=== PATIENT | male | born 1960 | race Caucasian/White ===

== ENCOUNTER → 2017-09-19 14:21 | Outpatient (CLI) | payer OTHER, SELFPAY ==
[2017-09-19 16:02] LABS: Albumin, Serum 3.7 g/dL (3.2-5.0); BUN 41 mg/dL (7-18); BUN/Creat Ratio 24.3 RATIO (10-20); Calcium,Total 8.7 mg/dL (8.5-10.1); Chloride 105 mmol/L (98-107); Creatinine, Serum 1.69 mg/dL (0.70-1.30); EST Glomerular Filtration Rate 45 mL/min (>60); Est Glom Filt Rate - Afr Amer 54 mL/min (>60); Glucose 170 mg/dL (74-106); Phosphorus 3.3 mg/dL (2.5-4.9); Potassium 4.3 mmol/L (3.5-5.1); Sodium Level 140 mmol/L (136-145)
[2017-09-19 16:05] LABS: Protein, Urine (Random) 46.8 mg/dL (<11.9); Protein:Creat Ratio 446 mg/g CRE (0-200)
[2017-09-20 08:32] LABS: Vitamin D,25 Hydroxy 22.6 ng/mL (29.95-100.01)
[2017-09-20 08:38] LABS: PTHIN 54.8 pg/mL (18.4-80.1)
== END ==
PROVIDERS: Family Provider Family Medicine; PCP Family Medicine; Visit Provider Internal Medicine Nephrology
DX: N18.3 Chronic kidney disease, stage 3 (moderate) (principal); R80.9 Proteinuria, unspecified
CPT/HCPCS: 36415; 80069; 82306; 82570; 83970; 84156

== ENCOUNTER → 2017-10-19 07:04 | Outpatient (CLI) | payer OTHER, SELFPAY ==
[2017-10-19 10:13] LABS: Hemoglobin A1c 6.2 % (4.2-6.3)
[2017-10-19 10:17] LABS: ALB/GLOB Ratio 1.1 RATIO (0.9-2.4); AST(SGOT) 11 U/L (15-37); Alanine Aminotransfer ALT/SGPT 30 U/L (16-61); Albumin, Serum 3.7 g/dL (3.2-5.0); Alkaline Phosphatase 78 U/L (45-117); Anion Gap 8 (5-15); BUN 39 mg/dL (7-18); BUN/Creat Ratio 20.2 RATIO (10-20); Calcium,Total 8.1 mg/dL (8.5-10.1); Chloride 108 mmol/L (98-107); Cholesterol 87 mg/dL (200); Creatinine, Serum 1.93 mg/dL (0.70-1.30); EST Glomerular Filtration Rate 39 mL/min (>60); Est Glom Filt Rate - Afr Amer 47 mL/min (>60); Globulin 3.5 g/dL (2.2-4.2); Glucose 74 mg/dL (74-106); High Density Lipoprotein 32 mg/dL; Potassium 4.4 mmol/L (3.5-5.1); Protein, Total 7.2 g/dL (6.4-8.2); Sodium Level 142 mmol/L (136-145); Thyroid Stim Hormone (TSH) 2.08 uIU/mL (0.358-3.74); Triglycerides 117 mg/dL; Very Low Density Lipoprotein 23 mg/dL (5-40)
[2017-10-19 10:19] LABS: Microalbumin:Creatinine Ratio 93.8 mg/g CRE (<30 mg/g CRE)
== END ==
PROVIDERS: Family Provider Family Medicine; PCP Family Medicine; Visit Provider Family Medicine
DX: E11.21 Type 2 diabetes mellitus with diabetic nephropathy (principal); E03.9 Hypothyroidism, unspecified; N18.3 Chronic kidney disease, stage 3 (moderate)
CPT/HCPCS: 36415; 80053; 80061; 82043; 82570; 83036; 84443

== ENCOUNTER → 2017-12-08 11:03 | Outpatient (CLI) | payer OTHER, SELFPAY ==
--- NOTE | 2017-12-08 11:03 | DT_ITS ---
This patient was seen during an EMR downtime December 04, 2017 - December 11, 2017. This patient may have a combination of paper and electronic documentation or all paper documentation. All documentation is viewable within the e-chart portion of [facility] for each patient visit.
[2017-12-08 13:47] LABS: D-Dimer Quantitative (DVT/PE) 8.19 FEU/ug/m (0.27-0.49)
== END ==
PROVIDERS: Family Provider Family Medicine; PCP Family Medicine; Visit Provider Family Medicine
DX: R06.09 Other forms of dyspnea (principal)
CPT/HCPCS: 36415; 85379

== ENCOUNTER → 2017-12-11 14:11 | Outpatient (CLI) | payer OTHER, SELFPAY ==
--- NOTE | 2017-12-11 14:11 | DT_ITS ---
This patient was seen during an EMR downtime December 04, 2017 - December 11, 2017. This patient may have a combination of paper and electronic documentation or all paper documentation. All documentation is viewable within the e-chart portion of [facility] for each patient visit.
--- NOTE | 2017-12-11 14:16 | CT_ITS ---
STUDY: CTA CHEST/THORAX REASON FOR EXAM: Male, 57 years old. Shortness of breath, elevated d-dimer. History of recent travel RADIATION DOSAGE (If Supplied By Facility): CTDIvol = ( 16.37 ) mGy, DLP = ( 742.43 ) mGycm TECHNIQUE: The examination was performed with the intravenous administration of 75mL ml of Isovue 370 contrast material. Post-processing of the angiographic images was performed, with multiplanar reformation and 3D reconstruction. Individualized dose optimization techniques were used for this CT. COMPARISON: None. FINDINGS: Normal enhancement of the main pulmonary artery and central right and left pulmonary arteries. There are filling defects in the bilateral pulmonary artery branches consistent with pulmonary embolism. Normal thoracic aorta and visualized great vessels. There is no demonstrated aortic dissection. Normal heart and pericardium. There are calcifications of the coronary arteries. Normal mediastinum. Normal hilar regions. Normal visualized trachea and bronchi. The lungs are well expanded. Normal pulmonary parenchyma. Normal pleura. Normal chest wall structures. There are degenerative changes of the thoracic spine. There is mild anterior wedging of the T12 and L1 vertebrae. Mild lobulation of the T11-L1 vertebral endplates consistent with benign Schmorl's nodes. Normal visualized upper abdomen. CT/CTA Chest W/WO Contrast IMPRESSION: Bilateral acute pulmonary emboli are demonstrated. The scan was performed on an outpatient basis. Before the patient left the Radiology department, the cytopathology technologist was able to contact Dr. Tong and inform him of the findings above. I was also able to later speak with Dr. Tong by phone myself. N.B. : The above information has been verbally conveyed by Shaheen Reilly MD to Kris Tong, Referring Physician, on 12/11/2017 16:05:49 (ET). Electronically Signed: Shaheen Reilly MD at 16:06 EDT , Service support , N.B. : The above information has been verbally conveyed by Shaheen Reilly MD to Kris Tong, Referring Physician, on 12/11/2017 16:05:49 (ET).
[2017-12-11 14:30] LABS: CREATININE FINGERSTICK 1.8 mg/dL (0.70-1.30)
== END ==
PROVIDERS: Family Provider Family Medicine; PCP Family Medicine; Visit Provider Family Medicine
DX: R79.89 Other specified abnormal findings of blood chemistry (principal)
CPT/HCPCS: 71275; Q9967

== ENCOUNTER → 2018-02-19 12:54 | Outpatient (CLI) | payer OTHER, SELFPAY | PROVIDERS: Family Provider Family Medicine; PCP Family Medicine; Visit Provider Internal Medicine Cardiovascular Disease | DX: I49.8 Other specified cardiac arrhythmias (principal); I26.99 Other pulmonary embolism without acute cor pulmonale; Z98.890 Other specified postprocedural states | CPT/HCPCS: 93306; Q9957; A4216; C8929 ==

== ENCOUNTER → 2018-03-21 09:48 | Outpatient (CLI) | payer OTHER, SELFPAY ==
[2018-03-21 12:22] LABS: Anion Gap 6 (5-15); BUN 34 mg/dL (7-18); BUN/Creat Ratio 17.7 RATIO (10-20); Calcium,Total 8.4 mg/dL (8.5-10.1); Chloride 105 mmol/L (98-107); Creatinine, Serum 1.92 mg/dL (0.70-1.30); EST Glomerular Filtration Rate 39 mL/min (>60); Est Glom Filt Rate - Afr Amer 47 mL/min (>60); Glucose 127 mg/dL (74-106); Potassium 4.2 mmol/L (3.5-5.1); Sodium Level 138 mmol/L (136-145)
[2018-03-21 12:36] LABS: Protein, Urine (Random) 36.7 mg/dL (<11.9); Protein:Creat Ratio 246 mg/g CRE (0-200)
== END ==
PROVIDERS: Family Provider Family Medicine; PCP Family Medicine; Visit Provider Internal Medicine Nephrology
DX: N18.3 Chronic kidney disease, stage 3 (moderate) (principal); R80.9 Proteinuria, unspecified
CPT/HCPCS: 36415; 80048; 82570; 84156

== ENCOUNTER → 2018-09-03 09:37 | Outpatient (CLI) | payer OTHER, SELFPAY ==
[2018-05-11 09:06] VITALS: BMI 31.1
[2018-09-03 12:27] LABS: Absolute Lymphocyte Count 2.02 X10^3/ul (0.83-4.51); Absolute Neutrophil Count 4.5 X10^3/uL (2.0-7.7); Basophil# 0.04 X10^3/uL; Basophil% 0.5 % (0-1); Eosinophil# 1.25 X10^3/uL; Hematocrit 41.6 % (40-54); Hemoglobin 13.1 g/dl (13.0-16.5); Lymphocyte # 2.02 X10^3/ul (4.0); Lymphocyte % 24.3 % (19-41); Mean Corp Hgb Conc 31.5 g/gl (32-36); Mean Corpuscular Hgb 28.9 pg (27.0-32.0); Mean Corpuscular Volume 91.8 fL (80-94); Mean Platelet Vol. 12.4 fl (6.2-12.0); Monocyte# 0.45 X10^3/uL; Monocyte% 5.4 % (0-10); Neutrophil # 4.53 X10^3/uL (2.7-7.7); Neutrophil % 54.6 % (47-70); Platelet Count 154 K/mm3 (150-450); RBC Distribution Width CV 13.4 % (11.6-14.6); RBC Distribution Width SD 43.9 fl (35.1-43.9); Red Blood Count 4.53 M/mm3 (4.6-6.2); White Blood Count 8.3 K/mm3 (4.4-11.0)
[2018-09-03 12:28] LABS: POSITIVE COUNT NO; POSITIVE DIFFERENTIAL NO; POSITIVE MORPHOLOGY NO
[2018-09-03 12:29] LABS: Microalbumin,Random Urine 78.7 mg/L (NO RANGE EST.); Microalbumin:Creatinine Ratio 28.9 mg/g CRE (<30 mg/g CRE); Protein, Urine (Random) 67.2 mg/dL (<11.9); Protein:Creat Ratio 247 mg/g CRE (0-200)
[2018-09-03 13:00] LABS: Vitamin D,25 Hydroxy 29.6 ng/mL (29.95-100.01)
[2018-09-03 13:23] LABS: ALB/GLOB Ratio 1.1 RATIO (0.9-2.4); AST(SGOT) 14 U/L (15-37); Alanine Aminotransfer ALT/SGPT 27 U/L (16-61); Albumin, Serum 3.9 g/dL (3.2-5.0); Alkaline Phosphatase 87 U/L (45-117); Anion Gap 9 (5-15); BUN 43 mg/dL (7-18); BUN/Creat Ratio 18.9 RATIO (10-20); Calcium,Total 8.2 mg/dL (8.5-10.1); Chloride 107 mmol/L (98-107); Cholesterol 82 mg/dL (200); Creatinine, Serum 2.28 mg/dL (0.70-1.30); EST Glomerular Filtration Rate 32 mL/min (>60); Est Glom Filt Rate - Afr Amer 38 mL/min (>60); Globulin 3.4 g/dL (2.2-4.2); Glucose 146 mg/dL (74-106); High Density Lipoprotein 29 mg/dL; Phosphorus 2.9 mg/dL (2.5-4.9); Potassium 4.5 mmol/L (3.5-5.1); Protein, Total 7.3 g/dL (6.4-8.2); Sodium Level 136 mmol/L (136-145); T4 Free Direct 1.23 ng/dL (0.76-1.46); Thyroid Stim Hormone (TSH) 1.39 uIU/mL (0.358-3.74); Triglycerides 83 mg/dL; Very Low Density Lipoprotein 17 mg/dL (5-40)
== END ==
PROVIDERS: Family Provider Family Medicine; PCP Family Medicine; Referring Provider Internal Medicine Nephrology; Visit Provider Internal Medicine Nephrology
DX: I12.9 Hypertensive chronic kidney disease with stage 1 through stage 4 chronic kidney disease, or unspecified chronic kidney disease (principal); E11.22 Type 2 diabetes mellitus with diabetic chronic kidney disease; N18.3 Chronic kidney disease, stage 3 (moderate); E11.21 Type 2 diabetes mellitus with diabetic nephropathy; E03.9 Hypothyroidism, unspecified; E55.9 Vitamin D deficiency, unspecified
CPT/HCPCS: 36415; 80053; 80061; 82043; 82306; 82570; 83970; 84100; 84156; 84439; 84443; 85025

== ENCOUNTER → 2018-12-24 11:02 | Outpatient (CLI) | payer OTHER, SELFPAY ==
[2018-11-08 15:13] VITALS: BMI 30.6
--- NOTE | 2018-12-24 11:05 | RAD_ITS ---
STUDY: X-RAY - ABDOMEN/PELVIS REASON FOR EXAM: Male, 58 years old. Abdominal pain. TECHNIQUE: Two AP supine views of the abdomen and pelvis. COMPARISON: None. FINDINGS: Normal visualized lung bases. There is an unremarkable bowel gas pattern. There is no demonstrated free abdominal air. The visualized liver, spleen and kidneys are grossly normal in size and morphology. Normal soft tissue structures. There are early degenerative changes of the visualized lumbar spine. There is mild left-sided depression of the superior T12 vertebral endplate, age uncertain. RAD/Abdomen Single View IMPRESSION: 1. Nonspecific bowel gas pattern. No free gas. 2. Left lateral wedging of the superior T12 vertebral endplate, age uncertain. Electronically Signed: Shaheen Reilly MD at 16:00 EDT , Service support ,
== END ==
PROVIDERS: Family Provider Family Medicine; PCP Family Medicine; Referring Provider Family Medicine; Visit Provider Family Medicine
DX: R10.9 Unspecified abdominal pain (principal)
CPT/HCPCS: 74018

== ENCOUNTER → 2019-02-19 07:25 | Outpatient (CLI) | payer OTHER, SELFPAY ==
[2018-11-08 15:13] VITALS: BMI 30.6
[2019-02-19 10:21] LABS: Hematocrit 35.5 % (40-54); Hemoglobin 11.5 g/dL (13.0-16.5); Mean Corp Hgb Conc 32.4 g/dL (32-36); Mean Corpuscular Hgb 30.2 pg (27.0-32.0); Mean Corpuscular Volume 93.2 fL (80-94); Mean Platelet Vol. 11.7 fl (6.2-12.0); Platelet Count 147 K/mm3 (150-450); RBC Distribution Width CV 13.2 % (11.6-14.6); RBC Distribution Width SD 45.1 fl (35.1-43.9); Red Blood Count 3.81 M/mm3 (4.6-6.2); White Blood Count 5.3 K/mm3 (4.4-11.0)
[2019-02-19 10:48] LABS: Albumin, Serum 3.5 g/dL (3.2-5.0); BUN 26 mg/dL (7-18); BUN/Creat Ratio 16.2 RATIO (10-20); Calcium,Total 8.4 mg/dL (8.5-10.1); Chloride 109 mmol/L (98-107); EST Glomerular Filtration Rate 48 mL/min (>60); Est Glom Filt Rate - Afr Amer 58 mL/min (>60); Glucose 138 mg/dL (74-106); Phosphorus 3.3 mg/dL (2.5-4.9); Potassium 4.3 mmol/L (3.5-5.1); Sodium Level 142 mmol/L (136-145)
[2019-02-19 10:51] LABS: Protein, Urine (Random) 32.1 mg/dL (<11.9); Protein:Creat Ratio 390 mg/g CRE (0-200)
[2019-02-19 10:54] LABS: Vitamin D,25 Hydroxy 30.4 ng/mL (29.95-100.01)
== END ==
PROVIDERS: Family Provider Family Medicine; PCP Family Medicine; Referring Provider Internal Medicine Nephrology; Visit Provider Internal Medicine Nephrology
DX: N18.3 Chronic kidney disease, stage 3 (moderate) (principal); N25.81 Secondary hyperparathyroidism of renal origin; R80.9 Proteinuria, unspecified
CPT/HCPCS: 36415; 80069; 82306; 82570; 83970; 84156; 85027

== ENCOUNTER → 2019-04-17 07:36 | Outpatient (CLI) | payer OTHER, SELFPAY ==
[2018-05-11 09:06] VITALS: BMI 31.1
[2018-11-08 15:13] VITALS: BMI 30.6
[2019-04-17 10:25] LABS: Hemoglobin A1c 6.6 % (4.2-6.3)
[2019-04-17 10:37] LABS: Cholesterol 91 mg/dL (200); High Density Lipoprotein 33 mg/dL; T4 Free Direct 1.12 ng/dL (0.76-1.46); Thyroid Stim Hormone (TSH) 1.74 uIU/mL (0.358-3.74); Triglycerides 133 mg/dL; Very Low Density Lipoprotein 27 mg/dL (5-40)
== END ==
PROVIDERS: Family Provider Family Medicine; PCP Family Medicine; Referring Provider Family Medicine; Visit Provider Family Medicine
DX: E78.6 Lipoprotein deficiency (principal); E11.21 Type 2 diabetes mellitus with diabetic nephropathy; E03.9 Hypothyroidism, unspecified
CPT/HCPCS: 36415; 80061; 83036; 84439; 84443

== ENCOUNTER → 2019-08-01 07:37 | Outpatient (CLI) | payer BC, SELFPAY ==
[2018-11-08 15:13] VITALS: BMI 30.6
[2019-08-01 10:16] LABS: Hematocrit 40.6 % (40-54); Hemoglobin 12.9 g/dL (13.0-16.5); Mean Corp Hgb Conc 31.8 g/dL (32-36); Mean Corpuscular Hgb 29.2 pg (27.0-32.0); Mean Corpuscular Volume 91.9 fL (80-94); Mean Platelet Vol. 11.7 fl (6.2-12.0); Platelet Count 187 K/mm3 (150-450); RBC Distribution Width CV 13.2 % (11.6-14.6); RBC Distribution Width SD 43.4 fl (35.1-43.9); Red Blood Count 4.42 M/mm3 (4.6-6.2); White Blood Count 6.7 K/mm3 (4.4-11.0)
[2019-08-01 10:34] LABS: Albumin, Serum 3.8 g/dL (3.2-5.0); BUN 34 mg/dL (7-18); BUN/Creat Ratio 19.9 RATIO (10-20); Calcium,Total 9.2 mg/dL (8.5-10.1); Chloride 104 mmol/L (98-107); Creatinine, Serum 1.71 mg/dL (0.70-1.30); EST Glomerular Filtration Rate 44 mL/min (>60); Est Glom Filt Rate - Afr Amer 53 mL/min (>60); Glucose 107 mg/dL (74-106); Phosphorus 3.6 mg/dL (2.5-4.9); Potassium 4.2 mmol/L (3.5-5.1); Sodium Level 138 mmol/L (136-145)
[2019-08-01 10:49] LABS: Protein, Urine (Random) 43.5 mg/dL (<11.9); Protein:Creat Ratio 372 mg/g CRE (0-200)
[2019-08-01 11:25] LABS: Vitamin D,25 Hydroxy 32.8 ng/mL (29.95-100.01)
[2019-08-01 11:26] LABS: PTHIN 67.4 pg/mL (18.4-80.1)
== END ==
PROVIDERS: PCP Family Medicine; Referring Provider Internal Medicine Nephrology; Visit Provider Internal Medicine Nephrology
DX: N18.3 Chronic kidney disease, stage 3 (moderate) (principal); N25.81 Secondary hyperparathyroidism of renal origin; R80.9 Proteinuria, unspecified
CPT/HCPCS: 36415; 80069; 82306; 82570; 83970; 84156; 85027

== ENCOUNTER → 2019-12-19 07:35 | Outpatient (CLI) | payer BC, SELFPAY ==
[2018-11-08 15:13] VITALS: BMI 30.6
[2019-12-19 10:39] LABS: Hemoglobin A1c 8.9 % (3.8-5.6)
[2019-12-19 11:00] LABS: T4 Free Direct 1.12 ng/dL (0.76-1.46); Thyroid Stim Hormone (TSH) 2.45 uIU/mL (0.358-3.74)
== END ==
LOC: LAB.FUTURE 07:38 → MTLAB 07:41
PROVIDERS: PCP Family Medicine; Referring Provider Family Medicine; Visit Provider Family Medicine
DX: E11.21 Type 2 diabetes mellitus with diabetic nephropathy (principal); E03.9 Hypothyroidism, unspecified
CPT/HCPCS: 36415; 83036; 84439; 84443

== ENCOUNTER → 2020-01-30 09:08 | Outpatient (CLI) | payer BC, SELFPAY ==
[2018-11-08 15:13] VITALS: BMI 30.6
[2020-01-30 10:18] LABS: Hematocrit 40.3 % (40-54); Hemoglobin 12.8 g/dL (13.0-16.5); Mean Corp Hgb Conc 31.8 g/dL (32-36); Mean Corpuscular Hgb 29.2 pg (27.0-32.0); Mean Platelet Vol. 11.3 fl (6.2-12.0); Platelet Count 170 K/mm3 (150-450); RBC Distribution Width CV 12.9 % (11.6-14.6); RBC Distribution Width SD 43.4 fl (35.1-43.9); Red Blood Count 4.38 M/mm3 (4.6-6.2); White Blood Count 6.4 K/mm3 (4.4-11.0)
[2020-01-30 10:32] LABS: Vitamin D,25 Hydroxy 42.1 ng/mL
[2020-01-30 10:42] LABS: PTHIN 63.9 pg/mL (18.4-80.1)
[2020-01-30 10:44] LABS: Albumin, Serum 3.6 g/dL (3.2-5.0); BUN 34 mg/dL (7-18); BUN/Creat Ratio 20.2 RATIO (10-20); Calcium,Total 8.5 mg/dL (8.5-10.1); Chloride 107 mmol/L (98-107); Creatinine, Serum 1.68 mg/dL (0.70-1.30); EST Glomerular Filtration Rate 45 mL/min (>60); Est Glom Filt Rate - Afr Amer 54 mL/min (>60); Glucose 180 mg/dL (74-106); Phosphorus 3.1 mg/dL (2.5-4.9); Potassium 4.4 mmol/L (3.5-5.1); Sodium Level 137 mmol/L (136-145)
[2020-01-30 10:49] LABS: Protein, Urine (Random) 67.2 mg/dL (<11.9); Protein:Creat Ratio 525 mg/g CRE (0-200)
== END ==
PROVIDERS: PCP Family Medicine; Referring Provider Internal Medicine Nephrology; Visit Provider Internal Medicine Nephrology
DX: N18.3 Chronic kidney disease, stage 3 (moderate) (principal); N25.81 Secondary hyperparathyroidism of renal origin
CPT/HCPCS: 36415; 80069; 82306; 82570; 83970; 84156; 85027

== ENCOUNTER → 2020-10-26 13:43 | Outpatient (CLI) | payer BC, SELFPAY ==
[2018-11-08 15:13] VITALS: BMI 30.6
[2020-10-26 15:33] LABS: Protein, Urine (Random) 41.5 mg/dL (<11.9); Protein:Creat Ratio 358 mg/g CRE (0-200)
[2020-10-26 15:38] LABS: Anion Gap 8 (5-15); BUN 47 mg/dL (7-18); BUN/Creat Ratio 25.5 RATIO (10-20); Calcium,Total 8.7 mg/dL (8.5-10.1); Chloride 105 mmol/L (98-107); Creatinine, Serum 1.84 mg/dL (0.70-1.30); EST Glomerular Filtration Rate 40 mL/min (>60); Est Glom Filt Rate - Afr Amer 49 mL/min (>60); Glucose 118 mg/dL (74-106); Potassium 4.3 mmol/L (3.5-5.1); Sodium Level 137 mmol/L (136-145)
== END ==
PROVIDERS: PCP Family Medicine; Referring Provider Internal Medicine Nephrology; Visit Provider Internal Medicine Nephrology
DX: R50.9 Fever, unspecified (principal); N18.30 Chronic kidney disease, stage 3 unspecified
CPT/HCPCS: 36415; 80048; 82570; 84156

== ENCOUNTER → 2020-12-29 07:17 | Outpatient (CLI) | payer BC, SELFPAY ==
[2020-12-29 10:32] LABS: AST(SGOT) 12 U/L (15-37); Alanine Aminotransfer ALT/SGPT 38 U/L (16-61); Albumin, Serum 3.7 g/dL (3.2-5.0); Alkaline Phosphatase 106 U/L (45-117); Bilirubin, Direct 0.12 mg/dL (0.00-0.30); Cholesterol 92 mg/dL (200); Globulin 3.3 g/dL (2.2-4.2); High Density Lipoprotein 32 mg/dL; Triglycerides 139 mg/dL; Very Low Density Lipoprotein 28 mg/dL (5-40)
== END ==
PROVIDERS: PCP Family Medicine; Referring Provider Internal Medicine Cardiovascular Disease; Visit Provider Internal Medicine Cardiovascular Disease
DX: E78.00 Pure hypercholesterolemia, unspecified (principal)
CPT/HCPCS: 36415; 80061; 80076

== ENCOUNTER → 2021-04-07 07:16 | Outpatient (CLI) | payer BC, SELFPAY ==
[2021-04-07 10:34] LABS: Cholesterol 91 mg/dL (200); Hemoglobin A1c 6.9 % (3.8-5.6); High Density Lipoprotein 32 mg/dL; Thyroid Stim Hormone (TSH) 1.65 uIU/mL (0.358-3.74); Triglycerides 132 mg/dL; Very Low Density Lipoprotein 26 mg/dL (5-40)
== END ==
PROVIDERS: PCP Family Medicine; Referring Provider Family Medicine; Visit Provider Family Medicine
DX: E03.9 Hypothyroidism, unspecified (principal); E11.21 Type 2 diabetes mellitus with diabetic nephropathy
CPT/HCPCS: 36415; 80061; 83036; 84443

== ENCOUNTER → 2021-10-27 | Outpatient (CLI) | payer BC, SELFPAY ==
[2021-10-27 10:00] LABS: Hemoglobin 13.1 g/dL (13.0-16.5); Mean Corp Hgb Conc 32.8 g/dL (32-36); Mean Corpuscular Hgb 29.1 pg (27.0-32.0); Mean Corpuscular Volume 88.9 fL (80-94); Mean Platelet Vol. 11.1 fl (6.2-12.0); Platelet Count 153 K/mm3 (150-450); RBC Distribution Width CV 12.3 % (11.6-14.6); RBC Distribution Width SD 39.8 fl (35.1-43.9); White Blood Count 5.9 K/mm3 (4.4-11.0)
[2021-10-27 10:32] LABS: PTHIN 43.9 pg/mL (18.4-80.1)
[2021-10-27 10:35] LABS: Vitamin D,25 Hydroxy 59.1 ng/mL
[2021-10-27 10:40] LABS: Albumin, Serum 3.6 g/dL (3.2-5.0); BUN 35 mg/dL (7-18); BUN/Creat Ratio 19.2 RATIO (10-20); Calcium,Total 8.7 mg/dL (8.5-10.1); Chloride 103 mmol/L (98-107); Creatinine, Serum 1.82 mg/dL (0.70-1.30); EST Glomerular Filtration Rate 41 mL/min (>60); Est Glom Filt Rate - Afr Amer 49 mL/min (>60); Glucose 160 mg/dL (74-106); Phosphorus 3.3 mg/dL (2.5-4.9); Potassium 4.2 mmol/L (3.5-5.1); Sodium Level 136 mmol/L (136-145)
[2021-10-27 12:23] LABS: Protein, Urine (Random) 21.5 mg/dL (<11.9); Protein:Creat Ratio 351 mg/g CRE (0-200)
== END | disposition home or self-care (01) ==
LOC: MTLAB 09:18
PROVIDERS: PCP Family Medicine; Referring Provider Internal Medicine Nephrology; Visit Provider Internal Medicine Nephrology
DX: R80.9 Proteinuria, unspecified (principal); N25.81 Secondary hyperparathyroidism of renal origin; N18.32 Chronic kidney disease, stage 3b
CPT/HCPCS: 36415; 80069; 82306; 82570; 83970; 84156; 85027

== ENCOUNTER → 2022-04-12 | Outpatient (CLI) | payer BC, SELFPAY ==
[2022-04-12 10:17] LABS: Absolute Lymphocyte Count 2.37 X10^3/uL (0.83-4.51); Absolute Neutrophil Count 4.5 X10^3/uL (2.0-7.7); Basophil# 0.08 X10^3/uL; Eosinophils% 5.1 % (0-5); Hematocrit 43.1 % (40-54); Hemoglobin 13.8 g/dL (13.0-16.5); Lymphocyte # 2.37 X10^3/ul (0.83-4.51); Lymphocyte % 29.9 % (19-41); Mean Corpuscular Hgb 29.3 pg (27.0-32.0); Mean Corpuscular Volume 91.5 fL (80-94); Mean Platelet Vol. 11.6 fl (6.2-12.0); Monocyte# 0.53 X10^3/uL; Monocyte% 6.7 % (0-10); NRBC Flagged by Analyzer 0 % (0-5); Neutrophil # 4.52 X10^3/uL (2.7-7.7); Platelet Count 189 K/mm3 (150-450); RBC Distribution Width SD 43.5 fl (35.1-43.9); Red Blood Count 4.71 M/mm3 (4.6-6.2); White Blood Count 7.9 K/mm3 (4.4-11.0)
[2022-04-12 10:46] LABS: ALB/GLOB Ratio 0.9 RATIO (0.9-2.4); AST(SGOT) 11 U/L (15-37); Alanine Aminotransfer ALT/SGPT 26 U/L (16-61); Albumin, Serum 3.5 g/dL (3.2-5.0); Alkaline Phosphatase 104 U/L (45-117); Anion Gap 7 (5-15); BUN 42 mg/dL (7-18); BUN/Creat Ratio 21.4 RATIO (10-20); Calcium,Total 8.9 mg/dL (8.5-10.1); Chloride 106 mmol/L (98-107); Cholesterol 95 mg/dL (200); Creatinine, Serum 1.96 mg/dL (0.70-1.30); EST Glomerular Filtration Rate 37 mL/min (>60); Est Glom Filt Rate - Afr Amer 45 mL/min (>60); Globulin 3.7 g/dL (2.2-4.2); Glucose 112 mg/dL (74-106); High Density Lipoprotein 30 mg/dL; PSA,Total - Annual Screen 0.84 ng/mL (0.00-4.00); Potassium 4.1 mmol/L (3.5-5.1); Protein, Total 7.2 g/dL (6.4-8.2); Sodium Level 140 mmol/L (136-145); Thyroid Stim Hormone (TSH) 1.77 uIU/mL (0.358-3.74); Triglycerides 143 mg/dL; Very Low Density Lipoprotein 29 mg/dL (5-40)
== END | disposition home or self-care (01) ==
LOC: MTLAB 07:18
PROVIDERS: PCP Family Medicine; Referring Provider Family Medicine; Visit Provider Family Medicine
DX: Z00.00 Encounter for general adult medical examination without abnormal findings (principal); E11.21 Type 2 diabetes mellitus with diabetic nephropathy; E03.9 Hypothyroidism, unspecified; Z12.5 Encounter for screening for malignant neoplasm of prostate
CPT/HCPCS: 36415; 80053; 80061; 82043; 82570; 84153; 84443; 85025; G0103

== ENCOUNTER → 2022-10-10 | Outpatient (CLI) | payer BC, SELFPAY ==
--- NOTE | 2022-10-10 15:51 | NEURO ---
NCS and/or EMG Patient Report Ordering Doctor: Kris Tong DATE OF SERVICE: 10/10/22 Indication: Intermittent numbness of the right hand. Occasional soreness on the dorsum of the wrist. No fixed weakness or numbness. No localized or radicular neck pain. Evaluate for entrapment neuropathy. Findings: Nerve conduction studies were performed in the right upper extremity. The right median motor study recording the abductor pollicis brevis showed a normal amplitude, normal distal latency and normal conduction velocity. The right ulnar motor study recording the abductor digiti minimi showed a normal amplitude, normal distal latency and normal conduction velocity. No conduction block or focal slowing was present across the elbow. The right median sensory response recording digit two showed a normal amplitude, latency and conduction velocity. The right ulnar sensory response recording digit five showed a normal amplitude, latency and conduction velocity. The right radial sensory response recording over the extensor snuff box showed a normal amplitude, latency and conduction velocity. Right median-ulnar lumbrical / interosseous motor latencies showed a prolonged median latency compared to the ulnar. Needle EMG of the right upper extremity muscles was performed. No denervation was seen in any muscle. Motor units in the abductor pollicis brevis were slightly large amplitude and long duration with normal recruitment. All other motor unit morphology, activation and recruitment patterns were normal. Impression: This is a borderline study. 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 This is supported by the abnormal internal comparison study as well as neurogenic motor units within the thenar muscles. Elieser Saab D.O. Multi [employer] Codes Neurology Neurology Interp Codes: 07027-94 Musc test done w/n test comp (interp) and 31859-73 Nrv cndj test 7-8 studies (interp)
== END | disposition home or self-care (01) ==
LOC: PSN 15:03
PROVIDERS: PCP Family Medicine; Referring Provider Family Medicine; Visit Provider Family Medicine
DX: R20.2 Paresthesia of skin (principal)
CPT/HCPCS: 95886; 95910

== ENCOUNTER → 2022-10-20 | Outpatient (CLI) | payer BC, SELFPAY ==
[2022-10-20 10:03] LABS: Hemoglobin 15.1 g/dL (13.0-16.5); Mean Corp Hgb Conc 31.5 g/dL (32-36); Mean Corpuscular Hgb 28.7 pg (27.0-32.0); Mean Corpuscular Volume 91.1 fL (80-94); Mean Platelet Vol. 11.3 fl (6.2-12.0); Platelet Count 159 K/mm3 (150-450); RBC Distribution Width CV 13.4 % (11.6-14.6); RBC Distribution Width SD 45.3 fl (35.1-43.9); Red Blood Count 5.27 M/mm3 (4.6-6.2); White Blood Count 6.4 K/mm3 (4.4-11.0)
[2022-10-20 10:08] LABS: Protein, Urine (Random) 29.7 mg/dL (<11.9); Protein:Creat Ratio 318 mg/g CRE (0-200)
[2022-10-20 10:16] LABS: Vitamin D,25 Hydroxy 61.1 ng/mL
[2022-10-20 10:23] LABS: Albumin, Serum 3.7 g/dL (3.2-5.0); BUN 39 mg/dL (7-18); BUN/Creat Ratio 20.5 RATIO (10-20); Chloride 106 mmol/L (98-107); EST Glomerular Filtration Rate 39 mL/min (>60); Est Glom Filt Rate - Afr Amer 47 mL/min (>60); Glucose 127 mg/dL (74-106); Phosphorus 4.2 mg/dL (2.5-4.9); Potassium 3.9 mmol/L (3.5-5.1); Sodium Level 137 mmol/L (136-145)
[2022-10-20 10:27] LABS: PTHIN 80.8 pg/mL (18.4-80.1)
== END | disposition home or self-care (01) ==
LOC: MTLAB 07:22
PROVIDERS: PCP Family Medicine; Referring Provider Internal Medicine Nephrology; Visit Provider Internal Medicine Nephrology
DX: N18.32 Chronic kidney disease, stage 3b (principal); N25.81 Secondary hyperparathyroidism of renal origin
CPT/HCPCS: 36415; 80069; 82306; 82570; 83970; 84156; 85027

== ENCOUNTER → 2023-12-01 | Outpatient (CLI) | payer BC, SELFPAY ==
[2023-12-01 10:20] LABS: Hematocrit 44.8 % (40-54); Hemoglobin 14.6 g/dL (13.0-16.5); Mean Corp Hgb Conc 32.6 g/dL (32-36); Mean Corpuscular Hgb 29.6 pg (27.0-32.0); Mean Corpuscular Volume 90.7 fL (80-94); Mean Platelet Vol. 11.6 fl (6.2-12.0); Platelet Count 157 K/mm3 (150-450); RBC Distribution Width CV 13.2 % (11.6-14.6); RBC Distribution Width SD 43.3 fl (35.1-43.9); Red Blood Count 4.94 M/mm3 (4.6-6.2); White Blood Count 6.3 K/mm3 (4.4-11.0)
[2023-12-01 10:41] LABS: ALB/GLOB Ratio 1.1 RATIO (0.9-2.4); AST(SGOT) 15 U/L (15-37); Alanine Aminotransfer ALT/SGPT 39 U/L (16-61); Albumin, Serum 3.6 g/dL (3.2-5.0); Alkaline Phosphatase 102 U/L (45-117); BUN 32 mg/dL (7-18); BUN/Creat Ratio 18.2 RATIO (10-20); Bilirubin, Direct 0.17 mg/dL (0.00-0.30); Chloride 104 mmol/L (98-107); Cholesterol 96 mg/dL (200); Creatinine, Serum 1.76 mg/dL (0.70-1.30); EST Glomerular Filtration Rate 42 mL/min (>60); Est Glom Filt Rate - Afr Amer 51 mL/min (>60); Globulin 3.3 g/dL (2.2-4.2); Glucose 156 mg/dL (74-106); High Density Lipoprotein 33 mg/dL; Phosphorus 4.3 mg/dL (2.5-4.9); Potassium 3.8 mmol/L (3.5-5.1); Protein, Total 6.9 g/dL (6.4-8.2); Sodium Level 137 mmol/L (136-145); Thyroid Stim Hormone (TSH) 2.21 uIU/mL (0.358-3.74); Triglycerides 161 mg/dL; Very Low Density Lipoprotein 32 mg/dL (5-40)
[2023-12-01 11:52] LABS: Vitamin D,25 Hydroxy 48.2 ng/mL
[2023-12-01 11:54] LABS: PTHIN 61.5 pg/mL (18.4-80.1)
[2023-12-01 12:04] LABS: Microalbumin,Random Urine 64.6 mg/L (NO RANGE EST.); Microalbumin:Creatinine Ratio 96.1 mg/g CRE (<30 mg/g CRE); Protein, Urine (Random) 19.6 mg/dL (<11.9); Protein:Creat Ratio 292 mg/g CRE (0-200)
== END | disposition home or self-care (01) ==
LOC: MTLAB 07:17
PROVIDERS: PCP Family Medicine; Referring Provider Family Medicine; Visit Provider Family Medicine
DX: Z12.5 Encounter for screening for malignant neoplasm of prostate (principal); E11.21 Type 2 diabetes mellitus with diabetic nephropathy; E11.22 Type 2 diabetes mellitus with diabetic chronic kidney disease; N18.32 Chronic kidney disease, stage 3b; N25.81 Secondary hyperparathyroidism of renal origin; R80.9 Proteinuria, unspecified; I12.9 Hypertensive chronic kidney disease with stage 1 through stage 4 chronic kidney disease, or unspecified chronic kidney disease; E03.9 Hypothyroidism, unspecified
CPT/HCPCS: 36415; 80061; 80069; 82043; 82247; 82248; 82306; 82570; 83970; 84075; 84153; 84156; 84443; 84450; 84460; 85027; G0103

== ENCOUNTER → 2024-12-25 | Outpatient (CLI) | payer OTHER, SELFPAY ==
--- OUTSIDE RECORDS SUMMARY | 2024-12-25 07:25 | XMS RPT_ITS | CCD ---
Author Organization [facility] Care Team Providers Care It Operations Manager Name Role Phone Dr. Kris Tong Primary Care Provider Dr. Anand Andrea Attending Provider Dr. Anand Andrea Referring Provider Dr. Kris Tong Referring Provider Priscila Aragon Attending Provider Unavailable Dr. Kris Tong Primary Care Provider Dr. Kris Tong Referring Provider [phone] Anand Andrea Attending Provider [phone] Kris Tong Primary Care Provider Dr. Anand Andrea Attending Provider Dr. Anand Andrea Referring Provider Dr. Kris Tong Referring Provider Dr. Kris Tong Other Provider Dr. Carrillo Saab Attending Provider Kris Tong Primary Care Unavailable Kris Tong Attending Unavailable Kris Tong Referring Unavailable Anand Andrea Attending Unavailable Kris Tong Primary Care Unavailable Zully, Pocahontas Referring Unavailable Zully, Anand Attending Unavailable Kris Tong Primary Care Unavailable Zully, Anand Referring Unavailable Zully, Anand Attending Unavailable Zully, Pocah[place] Referring Unavailable Kris Tong Primary Care Unavailable Kris Tong Primary Care Unavailable Roof SCARFER, Nithin Dillard Attending Unavailable Kris Tong Referring Unavailable Kris Tong Primary Care Unavailable Zully, Anand Attending Unavailable Anand Andrea Referring Unavailable Anand Andrea Attending Unavailable Kris Tong Primary Care Unavailable Anand Andrea Attending Unavailable Kris Tong Primary Care Unavailable Anand Andrea Referring Unavailable Kris Tong Referring Unavailable Libra Draper Consulting Unavailable Kris Tong Primary Care Unavailable Kris Tong Attending Unavailable Medications Current Medications Medication Drug Class(es) Dates Sig (Normalized) Sig (Original) aspirin 81 mg delayed release oral tablet (4 sources) Platelet Aggregation Inhibitor, Nonsteroidal Anti-inflammatory Drug Start: 12-08-2020 take 1 tablet by mouth once daily Aspirin (Adult Aspirin Regimen) 81 mg tablet,delayed release (DR/EC) Active 81 MG PO DAILY December 08, 2020 12:00am atorvastatin 20 mg oral tablet (8 sources) HMG-CoA Reductase Inhibitor Start: 11-12-2019 take 20 mg by mouth at bedtime Atorvastatin Active 20 MG PO AT BEDTIME November 12, 2019 12:00am Start: 06-28-2017 End: 11-12-2019 Atorvastatin Discontinued PO June 28, 2017 1:00am November 12, 2019 9:05am cholecalciferol 0.125 mg oral tablet (4 sources) Vitamin D Start: 05-05-2022 take 125 ug by mouth once daily Cholecalciferol (Vitamin D3) Active 125 MCG PO DAILY May 05, 2022 12:00am Start: 12-15-2017 take 1 capsule by mo [facility] once daily cholecalciferol (vitamin D3) 4,000 unit capsule Active 4000 UNIT PO daily December 15, 2017 3:07pm dapagliflozin 10 mg oral tablet (2 sources) Sodium-Glucose Cotransporter 2 Inhibitor Start: 05-05-2022 take 1 tablet by mouth once daily Dapagliflozin (Farxiga) 10 mg tablet Active 10 MG PO DAILY May 05, 2022 12:00am glipiZIDE 10 mg oral tablet (12 sources) Sulfonylurea Start: 12-08-2020 take 10 mg by mouth once daily Glipizide Active 10 MG PO DAILY December 08, 2020 12:00am Start: 12-15-2017 End: 12-08-2020 take 2.5 mg by mouth once daily Glipizide Discontinued 2.5 MG PO daily December 15, 2017 12:00am December 08, 2020 9:28am Start: 06-28-2017 End: 12-15-2017 take 5 mg by mouth once daily Glipizide Discontinued 5 MG PO daily June 28, 2017 1:00am December 15, 2017 3:06pm levothyroxine sodium 0.075 mg oral tablet (7 sources) l-Thyroxine Start: 12-08-2021 take 75 ug by mouth once daily Levothyroxine Active 75 MCG PO DAILY December 08, 2021 12:00am Start: 06-28-2017 End: 12-08-2021 take 1 capsule by mouth once daily levothyroxine 75 mcg capsule Discontinued 75 MCG PO daily June 28, 2017 1:00am December 08, 2021 8:58am lisinopril 20 mg oral tablet (8 sources) Angiotensin Converting Enzyme Inhibitor Start: 12-15-2017 take 20 mg by mouth once daily Lisinopril Active 20 MG PO daily December 15, 2017 12:00am Start: 06-28-2017 End: 12-15-2017 take 40 mg by mouth once daily Lisinopril Discontinued 40 MG PO daily June 28, 2017 1:00am December 15, 2017 3:06pm SITagliptin 100 mg oral tablet (7 sources) Dipeptidyl Peptidase 4 Inhibitor Start: 06-28-2017 End: 12-08-2021 take 100 mg by mouth once daily Sitagliptin Phosphate Active 100 MG PO DAILY December 08, 2021 8:59am Completed/Discontinued Medications Medication Drug Class(es) Dates Sig (Normalized) Sig (Original) cholecalciferol (vitamin D3) 4,000 unit capsule (2 sources) Start: 12-15-2017 End: 05-05-2022 take 1 capsule by mouth once daily cholecalciferol (vitamin D3) 4,000 unit capsule Discontinued 4000 UNIT PO daily December 15, 2017 12:00am May 05, 2022 11:09am 24 hr metoprolol succinate 25 mg extended release oral tablet (8 sources) beta-Adrenergic Cale Start: 11-12-2019 End: 05-05-2022 take 25 mg by mouth once daily Metoprolol Succinate Discontinued 25 MG PO DAILY November 12, 2019 12:00am May 05, 2022 11:08am Start: 12-15-2017 End: 11-12-2019 take 25 mg by mouth twice daily Metoprolol Tartrate Discontinued 25 MG PO TWICE A DAY December 15, 2017 12:00am November 12, 2019 9:06am rivaroxaban 20 mg oral tablet (12 sources) Factor Xa Inhibitor Start: 05-11-2018 End: 11-08-2018 take 1 tablet by mouth once daily Rivaroxaban (Xarelto) 20 mg tablet Discontinued 20 MG PO DAILY May 11, 2018 1:00am November 08, 2018 3:16pm Start: 12-15-2017 End: 05-11-2018 take 1 tablet by mouth twice daily Rivaroxaban (Xarelto) 15 mg tablet Discontinued 15 MG PO .COMPLEX December 15, 2017 12:00am May 11, 2018 10:09am 15 mg PO BID for PE per Dr. Tong Start: 07-24-2017 End: 12-14-2017 take 1 tablet by mouth once daily at mealtime Rivaroxaban (Xarelto) 15 mg tablet Discontinued 15 MG PO daily July 24, 2017 1:00am December 14, 2017 5:49pm administer with meals Problems Active Problems Problem Classification Problem Date Documented Date Episodic/Chronic Cardiac dysrhythmias (16 sources) Paroxysmal supraventricular tachycardia; Translations: [Supraventricular tachycardia] Onset: 03-11-2024 Chronic Conduction disorders (16 sources) Right bundle branch block AND left posterior fascicular block; Translations: [Bifascicular block] Onset: 04-22-2022 Chronic Diabetes mellitus with complications (1 source) Type 2 diabetes mellitus with diabetic nephropathy; Translations: [Type 2 diabetes mellitus with diabetic nephropathy] Onset: 11-05-2024 Chronic Essential hypertension (4 sources) Essential hypertension; Translations: [Essential (primary) hypertension] 11-01-2018 Chronic Other screening for suspected conditions (not mental disorders or infectious disease) (2 sources) Encounter for screening for malignant neoplasm of prostate; Translations: [Encounter for screening for malignant neoplasm of prostate] Onset: 12-09-2023 Episodic Past or Other Problems Problem Classification Problem Date Documented Date Episodic/Chronic Pulmonary heart disease (8 sources) Pulmonary embolism; Translations: [Other pulmonary embolism without acute cor pulmonale] Onset: 12-01-2017 12-05-2020 Episodic Residual codes; unclassified (3 sources) Other specified postprocedural states; Translations: [Personal history of surgery to other organs] Onset: 04-06-2018 Episodic Results Test Name Value Interpretation Reference Range Facility Cardiology Visit Reporton Cardiology Visit Report [facility] [address] [place] [address] OFFICE VISIT Date of Service: 02/20/24 MR#: [id number] Acct: [id number] Name: RUSLAN MORIN Rep #: [id number] : 1960 Provider: BHAVANA aparicio Age/Sex: 63/M Location: [facility] Status: Signed HPI HPI History of Present Illness Details: RUSLAN MORIN, is a 63 y/o pleasant gentleman with a history of hypertension chronic renal insufficiency diabetes mellitus who had on occasion noted palpitations. On a routine EKG performed in the office while he was there he was noted to be in a tachycardia with a rate of approximately 131 bpm with a right bundle branch block. It was determined that this was a supraventricular tachyarrhythmia and he was sent to [facility]. He had an EP study which demonstrated a wide complex tachycardia with an atypical right bundle branch block pattern. He had complete detailed mapping of the right atrium left atrium coronary sinus assessment for antidromic tachycardia. There was successful ablation of what appeared to be an idiopathic DVT in the left anterior lateral segment. Post ablation there was no evidence of inducible VT despite pacing in the RV LV and RA. He was discharged home and then he subsequently complained of shortness of breath saw his primary physician and he underwent a CT scan of his chest after a d-dimer was noted to be elevated. It demonstrated filling defects in the bilateral pulmonary artery branches consistent with pulmonary embolism. He had presented to the clinic at [facility] with a tachycardia with a rate of 120 bpm with a right bundle and left posterior fascicular morphology consistent with ventricular tachycardia. He underwent an EP study and it was demonstrated that he probably had Bell[place] ventricular tachycardia. It was successfully ablated and he had an implantable loop recorder placed. He has completed approximately 6 months of anticoagulation and his Xarelto has been discontinued. Patient was on vacation in [place] and became dizzy and unsteady. He was initially concerned for low blood sugar. He presented to a local hospital and underwent pacemaker placement on 04/22/2022 with a dual-chamber Biotronik device. While in [facility] he states he underwent MRI of brain to rule out CVA and an echocardiogram. These results are unavailable. He denies chest, arm, jaw, or neck discomfort. He denies palpitations. He denies bilateral lower extremity edema. He denies claudication. He denies shortness of breath with activity, shortness of breath at rest, orthopnea, or PND. He denies chronic cough. He denies significant, sudden weight gain. He denies lightheadedness, dizziness, near-syncope, or syncope. He denies blood in urine, blood in stool, or epistaxis. He denies fever or chills. He denies myalgia. He denies fatigue. His exercise level has remained stable. Intake Vital Signs 12/23/22 14:26 02/20/24 10:46 02/20/24 10:49 Height 6 ft 1 in 6 ft 1 in 6 ft 1 in Weight: 217 lb BMI 28.6 BP 118/70 Blood Pressure Location Lt brachial Position Sitting Respiration 16 Pulse 63 Pulse Source Monitor Intake Visit Reasons: 1 Y FU (MOVED FROM [facility]) / [place] @ 10 Bath Mixer Required: No Accompanied by: Self Allergies No Known Allergies Allergy (Verified 12/23/22 14:27) Medications ???Medication ???Instructions ???Recorded ???Confirmed ???Type lisinopril 20 mg tablet 20 mg PO QDAY 12/15/17 02/20/24 History atorvastatin 20 mg tablet 20 mg PO QHS 11/12/19 02/20/24 History aspirin 81 mg tablet,delayed 81 mg PO DAILY 12/08/20 02/20/24 History release (Adult Aspirin Regimen) glipizide 10 mg tablet 10 mg PO DAILY 12/08/20 02/20/24 History levothyroxine 75 mcg tablet 75 mcg PO DAILY 12/08/21 02/20/24 History sitagliptin phosphate 100 mg tablet 100 mg PO DAILY 30 days #30 tabs 12/08/21 02/20/24 History cholecalciferol (vitamin D3) 125 125 mcg PO DAILY 05/05/22 02/20/24 History mcg (5,000 unit) tablet dapagliflozin propanediol 10 mg 10 mg PO DAILY 05/05/22 02/20/24 History tablet (Farxiga) [facility] Medical History Second degree AV block, Mobitz type II Paroxysmal supraventricular tachycardia Obesity History of pulmonary embolus (PE) (12/2017) Diabetic neuropathy Type 2 diabetes mellitus Essential (primary) hypertension Sustained ventricular tachycardia Paroxysmal atrial fibrillation 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 Normal [facility] Pacemaker Checkon 02-20-2024 Pacemaker Check [facility] [address] [place] [address] Pacemaker Check Date of Service: 02/20/24 1353 MR#: [id number] Acct: [id number] Name: RUSLAN MORIN Rep #: [id number] : 1960 From: Priscila Aragon Age/Sex: 63/M Location: [facility] Status: Signed Billing Codes PM Device Codes: PM Dev Prog Eval, Dual Assessment and Plan Assessment and Plan (1) Second degree AV block, Mobitz type II: Status: Acute (2) Presence of permanent cardiac pacemaker: Status: Acute Comment: Biotronik Enitra 8 DR-T (Serial # [id number]); Atrial Lead Solia S 53; Ventricular Lead Solia S 60; Implanted 04/22/22 in [facility]; (3) Sustained ventricular tachycardia: Status: Chronic Comment: RFA for [place] VT 11/10/5017 and 04/06/2018 (4) Paroxysmal supraventricular tachycardia: Status: Chronic Comment: RFA 11/10/2017 (5) 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 Graham AUSTIN GETS LIPID TSH PSA LIVER GETS VITD PROCRE PTH MIACRE CBC RENAL Performed By: #### L 501.4405, L501.4600, L501.4700, L501.9520, L506.1000, L509.1000, L501.0900, L502.0250, L100.0500, L001.0705, L501.9910, L500.3600, L500.4100, L501.4100, L501.4305 #### [facility] [address] [place], [address] Alanine Aminotransferas (SGP T)on 12-01-2023 ALT [Catalytic activity/Vol] 39 U/L Normal 16-61 [facility] Comment on above: Order Comment: DR. Graham AUSTIN GETS LIPID TSH PSA LIVER GETS VITD PROCRE PTH MIACRE CBC RENAL Performed By: #### L 501.4405, L501.4600, L501.4700, L501.9520, L506.1000, L509.1000, L501.0900, L502.0250, L100.0500, L001.0705, L501.9910, L500.3600, L500.4100, L501.4100, L501.4305 #### [facility] [address] [place], [address] Alkaline Phosphataseon 11-30 ALK P 102 U/L Normal 45-117 [facility] Comment on above: Order Comment: DR. Graham AUSTIN GETS LIPID TSH PSA LIVER GETS VITD PROCRE PTH MIACRE CBC RENAL Performed By: #### L 501.4405, L501.4600, L501.4700, L501.9520, L506.1000, L509.1000, L501.0900, L502.0250, L100.0500, L001.0705, L501.9910, L500.3600, L500.4100, L501.4100, L501.4305 #### [facility] [address] [place], [place], [id number] Bilirubin, Directon 12-01-19 24 Bilirubin.direct [Mass/Vol] 0.17 mg/dL Normal 0.00-0.30 [facility] Comment on above: Order Comment: DR. Graham AUSTIN GETS LIPID TSH PSA LIVER GETS VITD PROCRE PTH MIACRE CBC RENAL Performed By: #### L 501.4405, L501.4600, L501.4700, L501.9520, L506.1000, L509.1000, L501.0900, L502.0250, L100.0500, L001.0705, L501.9910, L500.3600, L500.4100, L501.4100, L501.4305 #### [facility] [address] [place], [place], [id number] CBC-Complete Blood Cnt No Di ffon 12-01-2023 Erythrocyte distribution width (RBC) [Ratio] 13.2 % Normal 11.6-14.6 [facility] Comment on above: Order Comment: DR. Graham AUSTIN GETS LIPID TSH PSA LIVER GETS VITD PROCRE PTH MIACRE CBC RENAL Performed By: #### L 501.4405, L501.4600, L501.4700, L501.9520, L506.1000, L509.1000, L501.0900, L502.0250, L100.0500, L001.0705, L501.9910, L500.3600, L500.4100, L501.4100, L501.4305 #### [facility] [address] [place], [place], [id number] Hematocrit (Bld) [Volume fraction] 44.8 % Normal 40-54 [facility] Comment on above: Order Comment: DR. Graham AUSTIN GETS LIPID TSH PSA LIVER GETS VITD PROCRE PTH MIACRE CBC RENAL Performed By: #### L 501.4405, L501.4600, L501.4700, L501.9520, L506.1000, L509.1000, L501.0900, L502.0250, L100.0500, L001.0705, L501.9910, L500.3600, L500.4100, L501.4100, L501.4305 #### [facility] [address] [place], [address] Hemoglobin (Bld) [Mass/Vol] 14.6 g/dL Normal 13.0-16.5 [facility] Comment on above: Order Comment: DR. Graham AUSTIN GETS LIPID TSH PSA LIVER GETS VITD PROCRE PTH MIACRE CBC RENAL Performed By: #### L 501.4405, L501.4600, L501.4700, L501.9520, L506.1000, L509.1000, L501.0900, L502.0250, L100.0500, L001.0705, L501.9910, L500.3600, L500.4100, L501.4100, L501.4305 #### [facility] [address] [place], [address] MCH (RBC) [Entitic mass] 29.6 pg Normal 27.0-32.0 [facility] Comment on above: Order Comment: DR. Graham AUSTIN GETS LIPID TSH PSA LIVER GETS VITD PROCRE PTH MIACRE CBC RENAL Performed By: #### L 501.4405, L501.4600, L501.4700, L501.9520, L506.1000, L509.1000, L501.0900, L502.0250, L100.0500, L001.0705, L501.9910, L500.3600, L500.4100, L501.4100, L501.4305 #### [facility] [address] [place], [address] MCHC (RBC) [Mass/Vol] 32.6 g/dL Normal 32-36 [facility] Comment on above: Order Comment: DR. Graham AUSTIN GETS LIPID TSH PSA LIVER GETS VITD PROCRE PTH MIACRE CBC RENAL Performed By: #### L 501.4405, L501.4600, L501.4700, L501.9520, L506.1000, L509.1000, L501.0900, L502.0250, L100.0500, L001.0705, L501.9910, L500.3600, L500.4100, L501.4100, L501.4305 #### [facility] [address] [place], [address] MCV (RBC) [Entitic vol] 90.7 fL Normal 80-94 [facility] Comment on above: Order Comment: DR. Graham AUSTIN GETS LIPID TSH PSA LIVER GETS VITD PROCRE PTH MIACRE CBC RENAL Performed By: #### L 501.4405, L501.4600, L501.4700, L501.9520, L506.1000, L509.1000, L501.0900, L502.0250, L100.0500, L001.0705, L501.9910, L500.3600, L500.4100, L501.4100, L501.4305 #### [facility] [address] [place], [address] Platelet mean volume (Bld) [Entitic vol] 11.6 fL Normal 6.2-12.0 [facility] Comment on above: Order Comment: DR. Graham AUSTIN GETS LIPID TSH PSA LIVER GETS VITD PROCRE PTH MIACRE CBC RENAL Performed By: #### L 501.4405, L501.4600, L501.4700, L501.9520, L506.1000, L509.1000, L501.0900, L502.0250, L100.0500, L001.0705, L501.9910, L500.3600, L500.4100, L501.4100, L501.4305 #### [facility] [address] [place], [address] Platelets (Bld) [#/Vol] 157 10*3/uL Normal 150-450 [facility] Comment on above: Order Comment: DR. Graham AUSTIN GETS LIPID TSH PSA LIVER GETS VITD PROCRE PTH MIACRE CBC RENAL Performed By: #### L 501.4405, L501.4600, L501.4700, L501.9520, L506.1000, L509.1000, L501.0900, L502.0250, L100.0500, L001.0705, L501.9910, L500.3600, L500.4100, L501.4100, L501.4305 #### [facility] [address] [place], [address] RBC (Bld) [#/Vol] 4.94 10*6/uL Normal 4.6-6.2 [facility] Comment on above: Order Comment: DR. Graham AUSTIN GETS LIPID TSH PSA LIVER GETS VITD PROCRE PTH MIACRE CBC RENAL Performed By: #### L 501.4405, L501.4600, L501.4700, L501.9520, L506.1000, L509.1000, L501.0900, L502.0250, L100.0500, L001.0705, L501.9910, L500.3600, L500.4100, L501.4100, L501.4305 #### [facility] [address] [place], [address] RDW SD 43.3 fl Normal 35.1-43.9 [facility] Comment on above: Order Comment: DR. Graham AUSTIN GETS LIPID TSH PSA LIVER GETS VITD PROCRE PTH MIACRE CBC RENAL Performed By: #### L 501.4405, L501.4600, L501.4700, L501.9520, L506.1000, L509.1000, L501.0900, L502.0250, L100.0500, L001.0705, L501.9910, L500.3600, L500.4100, L501.4100, L501.4305 #### [facility] [address] [place], [address] WBC (Bld) [#/Vol] 6.3 10*3/uL Normal 4.4-11.0 [facility] Comment on above: Order Comment: DR. Graham AUSTIN GETS LIPID TSH PSA LIVER GETS VITD PROCRE PTH MIACRE CBC RENAL Performed By: #### L 501.4405, L501.4600, L501.4700, L501.9520, L506.1000, L509.1000, L501.0900, L502.0250, L100.0500, L001.0705, L501.9910, L500.3600, L500.4100, L501.4100, L501.4305 #### [facility] [address] [place], [address] Lipid Profileon 12-01-2023 Cholesterol [Mass/Vol] 96 mg/dL Normal 200 [facility] Comment on above: Order Comment: DR. Graham AUSTIN GETS LIPID TSH PSA LIVER GETS VITD PROCRE PTH MIACRE CBC RENAL Result Comment: <200 mg/dL Desirable 200-240 mg/dL Borderline >240 mg/dL High Risk Performed By: #### L 501.4405, L501.4600, L501.4700, L501.9520, L506.1000, L509.1000, L501.0900, L502.0250, L100.0500, L001.0705, L501.9910, L500.3600, L500.4100, L501.4100, L501.4305 #### [facility] [address] [place], [address] Cholesterol in HDL [Mass/Vol] 33 mg/dL Low [facility] Comment on above: Order Comment: DR. Graham AUSTIN GETS LIPID TSH PSA LIVER GETS VITD PROCRE PTH MIACRE CBC RENAL Result Comment: The drugs N-Acetylcysteine and Metamizole may falsely depress this assay. Reference Range HDL <40 mg/dL Low HDL Cholesterol HDL >or= 60 mg/dL High HDL Cholesterol Performed By: #### L 501.4405, L501.4600, L501.4700, L501.9520, L506.1000, L509.1000, L501.0900, L502.0250, L100.0500, L001.0705, L501.9910, L500.3600, L500.4100, L501.4100, L501.4305 #### [facility] [address] [place], [address] Cholesterol in LDL [Mass/Vol] 31 mg/dL Normal 0-130 [facility] Comment on above: Order Comment: DR. Graham AUSTIN GETS LIPID TSH PSA LIVER GETS VITD PROCRE PTH MIACRE CBC RENAL Performed By: #### L 501.4405, L501.4600, L501.4700, L501.9520, L506.1000, L509.1000, L501.0900, L502.0250, L100.0500, L001.0705, L501.9910, L500.3600, L500.4100, L501.4100, L501.4305 #### [facility] [address] [place], [address] Cholesterol in VLDL [Mass/Vol] 32 mg/dL Normal 5-40 [facility] Comment on above: Order Comment: DR. Graham AUSTIN GETS LIPID TSH PSA LIVER GETS VITD PROCRE PTH MIACRE CBC RENAL Performed By: #### L 501.4405, L501.4600, L501.4700, L501.9520, L506.1000, L509.1000, L501.0900, L502.0250, L100.0500, L001.0705, L501.9910, L500.3600, L500.4100, L501.4100, L501.4305 #### [facility] [address] [place], [place], [id number] Triglyceride [Mass/Vol] 161 mg/dL Normal [facility] Comment on above: Order Comment: DR. Graham AUSTIN GETS LIPID TSH PSA LIVER GETS VITD PROCRE PTH MIACRE CBC RENAL Result Comment: The drugs N-Acetylcysteine and Metamizole may falsely depress this assay. Serum Triglycerides Reference Interval Normal <150 mg/dL Borderline high 150 - 199 mg/dL High 200 - 499 mg/dL Very High > or = 500 mg/dL Performed By: #### L 501.4405, L501.4600, L501.4700, L501.9520, L506.1000, L509.1000, L501.0900, L502.0250, L100.0500, L001.0705, L501.9910, L500.3600, L500.4100, L501.4100, L501.4305 #### [facility] [address] [facility] [facility] [place], [place], [id number] Microalb:Creat Ratio,Random URon 12-01-2023 MALB:CRE 96.1 mg/g CRE High <30 mg/g CRE [facility] Comment on above: Order Comment: DR. Graham AUSTIN GETS LIPID TSH PSA LIVER GETS VITD PROCRE PTH MIACRE CBC RENAL Performed By: #### L 501.4405, L501.4600, L501.4700, L501.9520, L506.1000, L509.1000, L501.0900, L502.0250, L100.0500, L001.0705, L501.9910, L500.3600, L500.4100, L501.4100, L501.4305 #### [facility] [address] [place], [address] MICROALBUMIN,UR 64.6 mg/L Normal NO RANGE EST. [facility] Comment on above: Order Comment: DR. Graham AUSTIN GETS LIPID TSH PSA LIVER GETS VITD PROCRE PTH MIACRE CBC RENAL Performed By: #### L 501.4405, L501.4600, L501.4700, L501.9520, L506.1000, L509.1000, L501.0900, L502.0250, L100.0500, L001.0705, L501.9910, L500.3600, L500.4100, L501.4100, L501.4305 #### [facility] [address] [place], [address] PSA,Total - Annual Screenon 12-01-2023 PSA,TOT SCREEN 0.90 ng/mL Normal 0.00-4.00 [facility] Comment on above: Order Comment: DR. Graham AUSTIN GETS LIPID TSH PSA LIVER GETS VITD PROCRE PTH MIACRE CBC RENAL Result Comment: This test was performed using the TPSA assay method for the [employer] chemistry system. Values obtained with different assay methods cannot be used interchangably. When changing PSA assays in the course of monitoring a patient, additional sequential testing should be carried out to confirm baseline values. Performed By: #### L 501.4405, L501.4600, L501.4700, L501.9520, L506.1000, L509.1000, L501.0900, L502.0250, L100.0500, L001.0705, L501.9910, L500.3600, L500.4100, L501.4100, L501.4305 #### [facility] [address] [place], [address] PTHINon 12-01-2023 PTH 61.5 pg/mL Normal 18.4-80.1 [facility] Comment on above: Order Comment: DR. Graham AUSTIN GETS LIPID TSH PSA LIVER GETS VITD PROCRE PTH MIACRE CBC RENAL Performed By: #### L 501.4405, L501.4600, L501.4700, L501.9520, L506.1000, L509.1000, L501.0900, L502.0250, L100.0500, L001.0705, L501.9910, L500.3600, L500.4100, L501.4100, L501.4305 #### [facility] [address] [place], [address] Protein+Creatinine Ratio,Uri neon 12-01-2023 PROT:CRE RATIO 292 mg/g CRE High 0-200 [facility] Comment on above: Order Comment: DR. Graham AUSTIN GETS LIPID TSH PSA LIVER GETS VITD PROCRE PTH MIACRE CBC RENAL Performed By: #### L 501.4405, L501.4600, L501.4700, L501.9520, L506.1000, L509.1000, L501.0900, L502.0250, L100.0500, L001.0705, L501.9910, L500.3600, L500.4100, L501.4100, L501.4305 #### [facility] [address] [place], [address] Protein (U) [Mass/Vol] 19.6 mg/dL High <11.9 [facility] Comment on above: Order Comment: DR. Graham AUSTIN GETS LIPID TSH PSA LIVER GETS VITD PROCRE PTH MIACRE CBC RENAL Performed By: #### L 501.4405, L501.4600, L501.4700, L501.9520, L506.1000, L509.1000, L501.0900, L502.0250, L100.0500, L001.0705, L501.9910, L500.3600, L500.4100, L501.4100, L501.4305 #### [facility] [address] [place], [address] UR CREAT 67.20 mg/dL Normal NO RANGE EST. [facility] Comment on above: Order Comment: DR. Graham AUSTIN GETS LIPID TSH PSA LIVER GETS VITD PROCRE PTH MIACRE CBC RENAL Performed By: #### L 501.4405, L501.4600, L501.4700, L501.9520, L506.1000, L509.1000, L501.0900, L502.0250, L100.0500, L001.0705, L501.9910, L500.3600, L500.4100, L501.4100, L501.4305 #### [facility] [address] [place], [address] Protein, Totalon 12-01-2023 Albumin/Globulin [Mass ratio] 1.1 {ratio} Normal 0.9-2.4 [facility] Comment on above: Order Comment: DR. Graham AUSTIN GETS LIPID TSH PSA LIVER GETS VITD PROCRE PTH MIACRE CBC RENAL Performed By: #### L 501.4405, L501.4600, L501.4700, L501.9520, L506.1000, L509.1000, L501.0900, L502.0250, L100.0500, L001.0705, L501.9910, L500.3600, L500.4100, L501.4100, L501.4305 #### [facility] [address] [place], [address] Globulin (S) [Mass/Vol] 3.3 g/dL Normal 2.2-4.2 [facility] Comment on above: Order Comment: DR. Graham AUSTIN GETS LIPID TSH PSA LIVER GETS VITD PROCRE PTH MIACRE CBC RENAL Performed By: #### L 501.4405, L501.4600, L501.4700, L501.9520, L506.1000, L509.1000, L501.0900, L502.0250, L100.0500, L001.0705, L501.9910, L500.3600, L500.4100, L501.4100, L501.4305 #### [facility] [address] [place], [address] T PROT 6.9 g/dL Normal 6.4-8.2 [facility] Comment on above: Order Comment: DR. Graham AUSTIN GETS LIPID TSH PSA LIVER GETS VITD PROCRE PTH MIACRE CBC RENAL Performed By: #### L 501.4405, L501.4600, L501.4700, L501.9520, L506.1000, L509.1000, L501.0900, L502.0250, L100.0500, L001.0705, L501.9910, L500.3600, L500.4100, L501.4100, L501.4305 #### [facility] [address] [place], [address] Renal Profileon 12-01-2023 Albumin [Mass/Vol] 3.6 g/dL Normal 3.2-5.0 [facility] Comment on above: Order Comment: DR. Graham AUSTIN GETS LIPID TSH PSA LIVER GETS VITD PROCRE PTH MIACRE CBC RENAL Performed By: #### L 501.4405, L501.4600, L501.4700, L501.9520, L506.1000, L509.1000, L501.0900, L502.0250, L100.0500, L001.0705, L501.9910, L500.3600, L500.4100, L501.4100, L501.4305 #### [facility] [address] [place], [address] BUN/CRE 18.2 RATIO Normal 10-20 [facility] Comment on above: Order Comment: DR. Graham AUSTIN GETS LIPID TSH PSA LIVER GETS VITD PROCRE PTH MIACRE CBC RENAL Performed By: #### L 501.4405, L501.4600, L501.4700, L501.9520, L506.1000, L509.1000, L501.0900, L502.0250, L100.0500, L001.0705, L501.9910, L500.3600, L500.4100, L501.4100, L501.4305 #### [facility] [address] [place], [address] CA,Total 9.0 mg/dL Normal 8.5-10.1 [facility] Comment on above: Order Comment: DR. Graham AUSTIN GETS LIPID TSH PSA LIVER GETS VITD PROCRE PTH MIACRE CBC RENAL Performed By: #### L 501.4405, L501.4600, L501.4700, L501.9520, L506.1000, L509.1000, L501.0900, L502.0250, L100.0500, L001.0705, L501.9910, L500.3600, L500.4100, L501.4100, L501.4305 #### [facility] [address] [place], [address] Chloride [Moles/Vol] 104 mmol/L Normal 98-107 [facility] Comment on above: Order Comment: DR. Graham AUSTIN GETS LIPID TSH PSA LIVER GETS VITD PROCRE PTH MIACRE CBC RENAL Performed By: #### L 501.4405, L501.4600, L501.4700, L501.9520, L506.1000, L509.1000, L501.0900, L502.0250, L100.0500, L001.0705, L501.9910, L500.3600, L500.4100, L501.4100, L501.4305 #### [facility] [address] [place], [address] CO2 [Moles/Vol] 27.0 mmol/L Normal 21.0-32.0 [facility] Comment on above: Order Comment: DR. Graham AUSTIN GETS LIPID TSH PSA LIVER GETS VITD PROCRE PTH MIACRE CBC RENAL Performed By: #### L 501.4405, L501.4600, L501.4700, L501.9520, L506.1000, L509.1000, L501.0900, L502.0250, L100.0500, L001.0705, L501.9910, L500.3600, L500.4100, L501.4100, L501.4305 #### [facility] [address] [place], [address] Creatinine [Mass/Vol] 1.76 mg/dL High 0.70-1.30 [facility] Comment on above: Order Comment: DR. Graham AUSTIN GETS LIPID TSH PSA LIVER GETS VITD PROCRE PTH MIACRE CBC RENAL Result Comment: The validity of the calculated GFR GFRAA in patients over 70 years has not been determined. Clinical correlation is essential. Performed By: #### L 501.4405, L501.4600, L501.4700, L501.9520, L506.1000, L509.1000, L501.0900, L502.0250, L100.0500, L001.0705, L501.9910, L500.3600, L500.4100, L501.4100, L501.4305 #### [facility] [address] [place], [address] EST GFR - AA 51 mL/min Low >60 [facility] Comment on above: Order Comment: DR. Graham AUSTIN GETS LIPID TSH PSA LIVER GETS VITD PROCRE PTH MIACRE CBC RENAL Result Comment: Afri can [place] GFR Calc Performed By: #### L 501.4405, L501.4600, L501.4700, L501.9520, L506.1000, L509.1000, L501.0900, L502.0250, L100.0500, L001.0705, L501.9910, L500.3600, L500.4100, L501.4100, L501.4305 #### [facility] [address] [place], [address] GFR/1.73 sq M.predicted among non-blacks MDRD (S/P/Bld) [Vol rate/Area] 42 mL/min/{1.73_m2} Low >60 [facility] Comment on above: Order Comment: DR. Graahm AUSTIN GETS LIPID TSH PSA LIVER GETS VITD PROCRE PTH MIACRE CBC RENAL Result Comment: Non- GFR Calc Performed By: #### L 501.4405, L501.4600, L501.4700, L501.9520, L506.1000, L509.1000, L501.0900, L502.0250, L100.0500, L001.0705, L501.9910, L500.3600, L500.4100, L501.4100, L501.4305 #### [facility] [address] [place], [address] Glucose [Mass/Vol] 156 mg/dL High 74-106 [facility] Comment on above: Order Comment: DR. Graham AUSTIN GETS LIPID TSH PSA LIVER GETS VITD PROCRE PTH MIACRE CBC RENAL Result Comment: Fast ing Glucose result greater than or equal to 126 mg/dL suggests DIABETES MELLITUS per A.D.A. criteria. Performed By: #### L 501.4405, L501.4600, L501.4700, L501.9520, L506.1000, L509.1000, L501.0900, L502.0250, L100.0500, L001.0705, L501.9910, L500.3600, L500.4100, L501.4100, L501.4305 #### [facility] [address] [place], [address] Phosphate [Mass/Vol] 4.3 mg/dL Normal 2.5-4.9 [facility] Comment on above: Order Comment: DR. Graham AUSTIN GETS LIPID TSH PSA LIVER GETS VITD PROCRE PTH MIACRE CBC RENAL Performed By: #### L 501.4405, L501.4600, L501.4700, L501.9520, L506.1000, L509.1000, L501.0900, L502.0250, L100.0500, L001.0705, L501.9910, L500.3600, L500.4100, L501.4100, L501.4305 #### [facility] [address] [place], [address] Potassium [Moles/Vol] 3.8 mmol/L Normal 3.5-5.1 [facility] Comment on above: Order Comment: DR. Graham AUSTIN GETS LIPID TSH PSA LIVER GETS VITD PROCRE PTH MIACRE CBC RENAL Performed By: #### L 501.4405, L501.4600, L501.4700, L501.9520, L506.1000, L509.1000, L501.0900, L502.0250, L100.0500, L001.0705, L501.9910, L500.3600, L500.4100, L501.4100, L501.4305 #### [facility] [address] [place], [address] Sodium [Moles/Vol] 137 mmol/L Normal 136-145 [facility] Comment on above: Order Comment: DR. Graham AUSTIN GETS LIPID TSH PSA LIVER GETS VITD PROCRE PTH MIACRE CBC RENAL Performed By: #### L 501.4405, L501.4600, L501.4700, L501.9520, L506.1000, L509.1000, L501.0900, L502.0250, L100.0500, L001.0705, L501.9910, L500.3600, L500.4100, L501.4100, L501.4305 #### [facility] [address] [place], [address] Urea nitrogen [Mass/Vol] 32 mg/dL High 7-18 [facility] Comment on above: Order Comment: DR. Graham AUSTIN GETS LIPID TSH PSA LIVER GETS VITD PROCRE PTH MIACRE CBC RENAL Performed By: #### L 501.4405, L501.4600, L501.4700, L501.9520, L506.1000, L509.1000, L501.0900, L502.0250, L100.0500, L001.0705, L501.9910, L500.3600, L500.4100, L501.4100, L501.4305 #### [facility] [address] [place], [place], [id number] (264) Thyroid Stim Hormone (TSH)on 12-01-2023 TSH 2.21 uIU/mL Normal 0.358-3.74 [facility] Comment on above: Order Comment: DR. Graham AUSTIN GETS LIPID TSH PSA LIVER GETS VITD PROCRE PTH MIACRE CBC RENAL Performed By: #### L 501.4405, L501.4600, L501.4700, L501.9520, L506.1000, L509.1000, L501.0900, L502.0250, L100.0500, L001.0705, L501.9910, L500.3600, L500.4100, L501.4100, L501.4305 #### [facility] [address] [place], [place], [id number] Total Bilirubinon 12-01-2023 Bilirubin [Mass/Vol] 0.70 mg/dL Normal 0.20-1.00 [facility] Comment on above: Order Comment: DR. Graham AUSTIN GETS LIPID TSH PSA LIVER GETS VITD PROCRE PTH MIACRE CBC RENAL Result Comment: For patients on eltrombopag therapy, use of Dimension [place] TBIL is not recommended. Performed By: #### L 501.4405, L501.4600, L501.4700, L501.9520, L506.1000, L509.1000, L501.0900, L502.0250, L100.0500, L001.0705, L501.9910, L500.3600, L500.4100, L501.4100, L501.4305 #### [facility] [address] [place], [place], [address] Vitamin D,25 Hydroxyon 11-30 Vitamin D 25-OH 48.2 ng/mL Normal [facility] Comment on above: Order Comment: DR. Graham AUSTIN GETS LIPID TSH PSA LIVER GETS VITD PROCRE PTH MIACRE CBC RENAL Result Comment: Roxann min D 25(OH) Status Range Deficiency <20 ng/mL (50nmol/L) Insufficiency 20 - 30 ng/mL (50 - 75 nmol/L) Sufficiency 30 - 100 ng/mL (75 - 250 nmol/L) Toxicity >100 ng/mL (>250 nmol/L) Performed By: #### L 501.4405, L501.4600, L501.4700, L501.9520, L506.1000, L509.1000, L501.0900, L502.0250, L100.0500, L001.0705, L501.9910, L500.3600, L500.4100, L501.4100, L501.4305 #### [facility] [address] [place], [place], [id number] Basophil percentageOrdered B y: Dr. Draper on 10-20-2022 Basophil percentage 4.2 mg/dL 2.5-4.9 [facility] Chloride [Moles/Vol] 106 mmol/L 98-107 [facility] Glucose [Mass/Vol] 127 mg/dL 74-106 [facility] Comment on above: Fasting Glucose resu lt greater than or equal to 126 mg/dL suggests DIABETES MELLITUS per A.D.A. criteria. Potassium [Moles/Vol] 3.9 mmol/L 3.5-5.1 [facility] Sodium [Moles/Vol] 137 mmol/L 136-145 [facility] WBC (Bld) [#/Vol] 6.4 10*3/uL 4.4-11.0 [facility] Blood erythrocytes count (nu mber/volume)Ordered By: Dr. Draper on 10-20-2022 RBC (Bld) [#/Vol] 5.27 10*6/uL 4.6-6.2 [facility] Blood hemoglobin measurement (mass/volume)Ordered By: Dr. Draper on 10-20-2022 Hemoglobin (Bld) [Mass/Vol] 15.1 g/dL 13.0-16.5 [facility] Blood platelet mean volumeOr dered By: Dr. Draper on 10-20-2022 Platelet mean volume (Bld) [Entitic vol] 11.3 fL 6.2-12.0 [facility] Determination of erythrocyte mean corpuscular volume (MCV)Ordered By: Dr. Draper on 10-20-2022 MCV (RBC) [Entitic vol] 91.1 fL 80-94 [facility] Hematocrit Auto (Bld) [Volum e fraction]Ordered By: Dr. Draper on 10-20-2022 Hematocrit (Bld) [Volume fraction] 48.0 % 40-54 [facility] - Chemistry and C hemistry - challengeOrdered By: Dr. Draper on 10-20-2022 CO2 [Moles/Vol] 25.0 mmol/L 21.0-32.0 [facility] Urea nitrogen/Creatinine [Mass ratio] 20.5 mg/mg 10-20 [facility] - Hematology and Cell countsOrdered By: Dr. Draper on 10-20-2022 Erythrocyte distribution width (RBC) [Entitic vol] 45.3 fL 35.1-43.9 [facility] Erythrocyte distribution width (RBC) [Ratio] 13.4 % 11.6-14.6 [facility] MCH (RBC) [Entitic mass] 28.7 pg 27.0-32.0 [facility] MCHC Auto (RBC) [Mass/Vol]Or dered By: Dr. Draper on 10-20-2022 MCHC (RBC) [Mass/Vol] 31.5 g/dL 32-36 [facility] No Panel InformationOrdered By: Dr. Draper on 10-20-2022 Estimated GFR (MDRD) Amer 47 mL/min >60 [facility] Comment on above: GFR Calc Estimated GFR (MDRD) Non-Af Amer 39 mL/min >60 [facility] Comment on above: Non- GFR Calc Parathyroid Hormone (Intact) 80.8 pg/mL 18.4-80.1 [facility] Vitamin D 25-Hydroxy 61.1 ng/mL [facility] Comment on above: Vitamin D 25([place]) Sta tus Range Deficiency <20 ng/mL (50nmol/L) Insufficiency 20 - 30 ng/mL (50 - 75 nmol/L) Sufficiency 30 - 100 ng/mL (75 - 250 nmol/L) Toxicity >100 ng/mL (>250 nmol/L) Platelets bldOrdered By: Dr. Draper on 10-20-2022 Platelets (Bld) [#/Vol] 159 10*3/uL 150-450 [facility] Serum or plasma albumin lisette urement (mass/volume)Ordered By: Dr. Draper on 10-20-2022 Albumin [Mass/Vol] 3.7 g/dL 3.2-5.0 [facility] Serum or plasma calcium lisette urement (mass/volume)Ordered By: Dr. Draper on 10-20-2022 Calcium [Mass/Vol] 9.0 mg/dL 8.5-10.1 [facility] Serum or plasma creatinine m easurement (mass/volume)Ordered By: Dr. Draper on 10-20-2022 Creatinine [Mass/Vol] 1.90 mg/dL 0.70-1.30 [facility] Comment on above: The validity of the calculated GFR & GFRAA in patients over 70 years has not been determined. Clinical correlation is essential. Serum or plasma urea nitroge n measurement (mass/volume)Ordered By: Dr. Draper on 10-20-2022 Urea nitrogen [Mass/Vol] 39 mg/dL 7-18 [facility] Urine creatinine measurement (mass/volume)Ordered By: Dr. Draper on 10-20-2022 Creatinine (U) [Mass/Vol] 93.30 mg/dL NO RANGE EST. [facility] Urine protein measurement (m ass/volume)Ordered By: Dr. Draper on 10-20-2022 Protein (U) [Mass/Vol] 29.7 mg/dL 0.0-11.8 [facility] Urine protein/creatinine mas s ratioOrdered By: Dr. Draper on 10-20-2022 Protein/Creatinine (U) [Mass ratio] 318 mg/g CRE 0-200 [facility] Absolute lymphocyte counton 04-12-2022 Lymphocytes Auto (Unsp spec) [#/Vol] 2.37 10*3/uL 0.83-4.51 [facility] Work Phone: Basophil percentageon 2021 Basophils/100 WBC (Bld) 1.0 % 0-1 [facility] Work Phone: Bilirubin [Mass/Vol] 0.60 mg/dL 0.20-1.00 [facility] Work Phone: Comment on above: For patients on eltr ombopag therapy, use of Dimension [place] TBIL is not recommended. Chloride [Moles/Vol] 106 mmol/L 98-107 [facility] Work Phone: Cholesterol [Mass/Vol] 95 mg/dL <200 [facility] Work Phone: [phone] Comment on above: <200 mg/dL Desirable 200-240 mg/dL Borderline >240 mg/dL High Risk Eosinophils/100 WBC (Bld) 5.1 % 0-5 [facility] Work Phone: Glucose [Mass/Vol] 112 mg/dL 74-106 [facility] Work Phone: Comment on above: Fasting Glucose resu lt from 100 to 125 mg/dL suggests IMPAIRED HOMEOSTASIS per A.D.A. criteria. Neutrophils (Bld) [#/Vol] 4.5 10*3/uL 2.0-7.7 [facility] Work Phone: [phone] Neutrophils/100 WBC (Bld) 57.0 % 47-70 [facility] Work Phone: [phone] Potassium [Moles/Vol] 4.1 mmol/L 3.5-5.1 [facility] Work Phone: Protein [Mass/Vol] 7.2 g/dL 6.4-8.2 [facility] Work Phone: Sodium [Moles/Vol] 140 mmol/L 136-145 [facility] Work Phone: Triglyceride [Mass/Vol] 143 mg/dL <199 [facility] Work Phone: Comment on above: The drugs N-Acetylcy steine and Metamizole may falsely depress this assay.Serum Triglycerides Reference Interval Normal <150 mg/dL Borderline high 150 - 199 mg/dL High 200 - 499 mg/dL Very High > or = 500 mg/dL WBC (Bld) [#/Vol] 7.9 10*3/uL 4.4-11.0 [facility] Work Phone: Blood erythrocytes count (nu mber/volume)on 04-12-2022 RBC (Bld) [#/Vol] 4.71 10*6/uL 4.6-6.2 [facility] Work Phone: Blood hemoglobin measurement (mass/volume)on 04-12-2022 Hemoglobin (Bld) [Mass/Vol] 13.8 g/dL 13.0-16.5 [facility] Work Phone: Blood lymphocytes/100 leukoc yteson 04-12-2022 Lymphocytes/100 WBC (Bld) 29.9 % 19-41 [facility] Work Phone: Blood monocytes/100 leukocyt eson 04-12-2022 Monocytes/100 WBC (Bld) 6.7 % 0-10 [facility] Work Phone: Blood platelet mean volumeon 04-12-2022 Platelet mean volume (Bld) [Entitic vol] 11.6 fL 6.2-12.0 [facility] Work Phone: Determination of erythrocyte mean corpuscular volume (MCV)on 04-12-2022 MCV (RBC) [Entitic vol] 91.5 fL 80-94 [facility] Work Phone: Hematocrit Auto (Bld) [Volum e fraction]on 04-12-2022 Hematocrit (Bld) [Volume fraction] 43.1 % 40-54 [facility] Work Phone: [phone] Laboratory - Chemistry and C hemistry - challengeon 04-12-2022 ALP [Catalytic activity/Vol] 104 U/L 45-117 [facility] Work Phone: ALT [Catalytic activity/Vol] 26 U/L 16-61 [facility] Work Phone: [phone] CO2 [Moles/Vol] 27.0 mmol/L 21.0-32.0 [facility] Work Phone: [phone] Globulin (S) [Mass/Vol] 3.7 g/dL 2.2-4.2 [facility] Work Phone: [phone] Urea nitrogen/Creatinine [Mass ratio] 21.4 mg/mg 10-20 [facility] Work Phone: [phone] Laboratory - Hematology and Cell countson 04-12-2022 Erythrocyte distribution width (RBC) [Entitic vol] 43.5 fL 35.1-43.9 [facility] Work Phone: [phone] Erythrocyte distribution width (RBC) [Ratio] 13.0 % 11.6-14.6 [facility] Work Phone: [phone] Immature granulocytes/100 WBC (Bld) 0.300 % 0.0-0.9 [facility] Work Phone: [phone] Comment on above: IG% - Immature Granu locytes (promyelocytes, myelocytes and metamyelocytes) > 1% indicates that a LEFT SHIFT is Present. MCH (RBC) [Entitic mass] 29.3 pg 27.0-32.0 [facility] Work Phone: [phone] Nucleated RBC/100 WBC (Bld) [Ratio] 0 % 0-5 [facility] Work Phone: [phone] MCHC Auto (RBC) [Mass/Vol]on 04-12-2022 MCHC (RBC) [Mass/Vol] 32.0 g/dL 32-36 [facility] Work Phone: No Panel Informationon 04-12 Estimated GFR (MDRD) Amer 45 mL/min >60 [facility] Work Phone: Comment on above: GFR Calc Estimated GFR (MDRD) Non-Af Amer 37 mL/min >60 [facility] Work Phone: Comment on above: Non- GFR Calc Prostate Specific Antigen Screen 0.84 ng/mL 0.00-4.00 [facility] Work Phone: Comment on above: This test was perfor med using the TPSA assay method for [employer] chemistry system. Values obtained with differentassay methods cannot be used interchangably.When changing PSA assays in the course of monitoring apatient, additional sequential testing should be carriedout to confirm baseline values. Thyroid Stimulating Hormone (TSH) 1.77 uIU/mL 0.358-3.74 [facility] Work Phone: Urine Microalbumin/Creatinin e Ratio 74.0 mg/g CRE <30 [facility] Work Phone: Platelets bldon 04-12-2022 Platelets (Bld) [#/Vol] 189 10*3/uL 150-450 [facility] Work Phone: Serum or plasma albumin lisette urement (mass/volume)on 04-12-2022 Albumin [Mass/Vol] 3.5 g/dL 3.2-5.0 [facility] Work Phone: Serum or plasma albumin/glob ulin mass ratioon 04-12-2022 Albumin/Globulin [Mass ratio] 0.9 {ratio} 0.9-2.4 [facility] Work Phone: Serum or plasma calcium lisette urement (mass/volume)on 04-12-2022 Calcium [Mass/Vol] 8.9 mg/dL 8.5-10.1 [facility] Work Phone: Serum or plasma cholesterol in HDL measurement (mass/volume)on 04-12-2022 Cholesterol in HDL [Mass/Vol] 30 mg/dL >40 [facility] Work Phone: Comment on above: The drugs N-Acetylcy steine and Metamizole may falsely depress this assay. Reference Range HDL <40 mg/dL Low HDL Cholesterol HDL >or= 60 mg/dL High HDL Cholesterol Serum or plasma cholesterol in VLDL measurement (mass/volume)on 04-12-2022 Cholesterol in VLDL [Mass/Vol] 29 mg/dL 5-40 [facility] Work Phone: Serum or plasma creatinine m easurement (mass/volume)on 04-12-2022 Creatinine [Mass/Vol] 1.96 mg/dL 0.70-1.30 [facility] Work Phone: Comment on above: The validity of the calculated GFR & GFRAA in patients over 70 years has not been determined. Clinical correlation is essential. Serum or plasma low density lipoprotein (LDL) cholesterol measurement (mass/volume)on 04-12-2022 Cholesterol in LDL [Mass/Vol] 36 mg/dL 0-130 [facility] Work Phone: Serum or plasma urea nitroge n measurement (mass/volume)on 04-12-2022 Urea nitrogen [Mass/Vol] 42 mg/dL 7-18 [facility] Work Phone: Thin prep Papanicolaou smear with manual screeningon 04-12-2022 Thin prep Papanicolaou smear with manual screening 11 U/L 15-37 [facility] Work Phone: Thin prep Papanicolaou smear with manual screening 7 5-15 [facility] Work Phone: Thin prep Papanicolaou smear with manual screening 108.0 mg/L NO RANGE EST. [facility] Work Phone: Urine creatinine measurement (mass/volume)on 04-12-2022 Creatinine (U) [Mass/Vol] 146.00 mg/dL NO RANGE EST. [facility] Work Phone: Basophil percentageon 2021 Basophil percentage 3.3 mg/dL 2.5-4.9 [facility] Work Phone: Chloride [Moles/Vol] 103 mmol/L 98-107 [facility]: Glucose [Mass/Vol] 160 mg/dL 74-106 [facility] Work Phone: Comment on above: Fasting Glucose resu lt greater than or equal to 126 mg/dL suggests DIABETES MELLITUS per A.D.A. criteria. Potassium [Moles/Vol] 4.2 mmol/L 3.5-5.1 [facility] Work Phone: Sodium [Moles/Vol] 136 mmol/L 136-145 [facility] Work Phone: WBC (Bld) [#/Vol] 5.9 10*3/uL 4.4-11.0 [facility] Work Phone: Blood erythrocytes count (nu mber/volume)on 10-27-2021 RBC (Bld) [#/Vol] 4.50 10*6/uL 4.6-6.2 [facility] Work Phone: Blood hemoglobin measurement (mass/volume)on 10-27-2021 Hemoglobin (Bld) [Mass/Vol] 13.1 g/dL 13.0-16.5 [facility] Work Phone: Blood platelet mean volumeon 10-27-2021 Platelet mean volume (Bld) [Entitic vol] 11.1 fL 6.2-12.0 [facility] Work Phone: Determination of erythrocyte mean corpuscular volume (MCV)on 10-27-2021 MCV (RBC) [Entitic vol] 88.9 fL 80-94 [facility] Work Phone: Hematocrit Auto (Bld) [Volum e fraction]on 10-27-2021 Hematocrit (Bld) [Volume fraction] 40.0 % 40-54 [facility] Work Phone: Laboratory - Chemistry and C hemistry - challengeon 10-27-2021 CO2 [Moles/Vol] 26.0 mmol/L 21.0-32.0 [facility] Work Phone: Urea nitrogen/Creatinine [Mass ratio] 19.2 mg/mg 10-20 [facility] Work Phone: Laboratory - Hematology and Cell countson 10-27-2021 Erythrocyte distribution width (RBC) [Entitic vol] 39.8 fL 35.1-43.9 [facility] Work Phone: Erythrocyte distribution width (RBC) [Ratio] 12.3 % 11.6-14.6 [facility] Work Phone: MCH (RBC) [Entitic mass] 29.1 pg 27.0-32.0 [facility] Work Phone: MCHC Auto (RBC) [Mass/Vol]on 10-27-2021 MCHC (RBC) [Mass/Vol] 32.8 g/dL 32-36 [facility] Work Phone: No Panel Informationon 10-27 Estimated GFR (MDRD) Amer 49 mL/min >60 [facility] Work Phone: Comment on above: GFR Calc Estimated GFR (MDRD) Non-Af Amer 41 mL/min >60 [facility] Work Phone: Comment on above: Non- GFR Calc Parathyroid Hormone (Intact) 43.9 pg/mL 18.4-80.1 [facility] Work Phone: Vitamin D 25-Hydroxy 59.1 ng/mL [facility] Work Phone: Comment on above: Vitamin D 25(OH) Sta tus Range Deficiency <20 ng/mL (50nmol/L) Insufficiency 20 - 30 ng/mL (50 - 75 nmol/L) Sufficiency 30 - 100 ng/mL (75 - 250 nmol/L) Toxicity >100 ng/mL (>250 nmol/L) Platelets bldon 10-27-2021 Platelets (Bld) [#/Vol] 153 10*3/uL 150-450 [facility] Work Phone: Serum or plasma albumin lisette urement (mass/volume)on 10-27-2021 Albumin [Mass/Vol] 3.6 g/dL 3.2-5.0 [facility] Work Phone: Serum or plasma calcium lisette urement (mass/volume)on 10-27-2021 Calcium [Mass/Vol] 8.7 mg/dL 8.5-10.1 [facility] Work Phone: Serum or plasma creatinine m easurement (mass/volume)on 10-27-2021 Creatinine [Mass/Vol] 1.82 mg/dL 0.70-1.30 [facility] Work Phone: Comment on above: The validity of the calculated GFR & GFRAA in patients over 70 years has not been determined. Clinical correlation is essential. Serum or plasma urea nitroge n measurement (mass/volume)on 10-27-2021 Urea nitrogen [Mass/Vol] 35 mg/dL 7-18 [facility] Work Phone: Urine creatinine measurement (mass/volume)on 10-27-2021 Creatinine (U) [Mass/Vol] 61.30 mg/dL NO RANGE EST. [facility] Work Phone: Urine protein measurement (m ass/volume)on 10-27-2021 Protein (U) [Mass/Vol] 21.5 mg/dL 0.0-11.8 [facility] Work Phone: Urine protein/creatinine mas s ratioon 10-27-2021 Protein/Creatinine (U) [Mass ratio] 351 mg/g CRE 0-200 [facility] Work Phone: Encounters Encounter Date Encounter Type Care Provider Facility Start: 01-27-2025 ambulatory [facility] Facility: [facility] Start: 11-05-2024 Encounter for genera l adult medical examination without abnormal findings [facility] Start: 09-22-2024 End: 09-22-2024 ambulatory [facility] Start: 06-24-2024 End: 06-24-2024 ambulatory [facility] Start: 03-24-2024 End: 03-24-2024 ambulatory Anand Zully Facility:[facility] Start: 02-20-2024 End: 02-20-2024 ambulatory Kris Tong Facility:[facility] Start: 01-05-2024 End: 01-05-2024 ambulatory Anand Zully [place] [place]: 12-01-2023 End: 12-01-2023 ambulatory Kris Tong Facility:[facility] Start: 10-20-2022 End: 10-20-[address] Kris Tong Work Phone: [facility] Work Phone: Start: 10-20-2022 End: 10-20-[address] Kris Tong Work Phone: [facility] Start: 10-10-2022 Non-patient / Non-visit Dr. Willem Tong Work Phone: [facility] Start: 10-10-2022 End: 10-10-[address] Kris Tong Work Phone: [facility] Work Phone: Start: 10-10-2022 End: 10-10-[address] Kris Tong Work Phone: [facility] Start: 09-26-2022 End: 09-26-[address] Kris Tong Work Phone: [facility] Start: 04-12-2022 End: 04-12-[address] Kris Tong Work Phone: [facility] Work Phone: Start: 04-12-2022 End: 04-12-[address] Kris Tong Work Phone: [facility] Start: 12-29-2021 End: 12-29-[address] Kris Tong Work Phone: [facility] Start: 12-20-2021 End: 12-20-[address] Kris Tong Work Phone: [facility] Start: 10-27-2021 End: 10-27-[address] Kris Tong Work Phone: [facility] Start: 09-22-2021 End: 09-22-[address] Kris Tong Work Phone: [facility] Start: 09-21-2021 Non-patient / Non-visit Dr. Willem Tong Work Phone: [facility] Procedures Date Procedure Procedure Detail Performing Clinician Start: 04-06-2018 H/O: surgery History of loop recorde r Dr. Kris Tong Work Phone: Payers Date Payer Category Payer Self-pay [id number] 2023 Unknown [id number] Private Health Insurance [id number] Unknown [id number] 2.16.8 [id number] Unknown [id number] 2.16.8 [id number] Unknown [id number] 2.16.8 [id number] Unknown [id number] 2.16.8 [id number] Unknown [id number] 2.16.8 [id number] Unknown [id number] 2.16.8 [id number] Unknown [id number] 2.16.8 [id number] Unknown [id number] 2.16.8 [id number] Unknown [id number] 2.16.8 [id number] Unknown [id number] 2.16.8 [id number] Social History Date Type Detail Facility Start: 12-08-2020 End: 05-05-2022 Tobacco smoking status AZIS Unknown if ever smoked [facility] Start: 1960 Sex Assigned At Male [facility] Procedure note 10-10-2022 Note Date & Type Note Facility 10-10-2022 Procedure note [facility] Evaluation note 04-22-2022 Note Date & Type Note Facility 04-22-2022 Evaluation note Diagnosis Onset Date Presence of permanent cardiac pacemaker April 22, 2022 acute Second degree AV block, Mobitz type II acute [facility] Work Phone: Evaluation note 04-06-2018 Note Date & Type Note Facility 04-06-2018 Evaluation note Diagnosis Onset Date Paroxysmal supraventricular tachycardia chronic 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 Sustained ventricular tachycardia chronic History of loop recorder April 06, 2018 resolved [facility] Work Phone: Evaluation note 04-06-2018 Note Date & Type Note Facility 04-06-2018 Evaluation note Diagnosis Onset Date Paroxysmal supraventricular tachycardia chronic Sustained ventricular tachycardia chronic History of loop recorder April 06, 2018 resolved Paroxysmal supraventricular tachycardia chronic Sustained ventricular tachycardia chronic History of loop recorder April 06, 2018 resolved [facility] Work Phone: Chief Complaint and Reason for Visit Chief Complaint REMOTE CHECK REMOTE CHECK Reason for Visit Paroxysmal supravent ricular tachycardia 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 Sustained ventricular tachycardia History of loop recorder Chief Complaint remote ILR f/u remote ILR f/u Reason for Visit Paroxysmal supravent ricular tachycardia Sustained ventricular tachycardia History of loop recorder Paroxysmal supraventricular tachycardia Sustained ventricular tachycardia History of loop recorder Chief Complaint 3 mos remote Biotron ik f/u RT HAND NUMBNESS, INTERMITTENT PAIN/WEAKNESS RT HAND NUMBNESS, INTERMITTENT PAIN/WEAKNESS Reason for Visit Presence of permanen t cardiac pacemaker Second degree AV block, Mobitz type II Summary Purpose Family History No Family History Records Found Advance Directives No Advanced Directives Records Found Additional Source Comments Goals (unrecognized section and content) Goals may be documented in a n alternate sectionGoals may be documented in an alternate sectionGoals may be documented in an alternate sectionGoals may be documented in an alternate section Care Teams (unrecognized sec tion and content) Team Status: Active Member Role Status Dates Dr. Kris Tong , DO Family Provider Active Dr. Kris Tong , DO Primary Care Provider Active Team Status: Inactive Member Role Status Dates Dr. Kris Tong , DO Primary Care Provider Active Priscila Aragon Active Dr. Anand Andrea MD Attending Provider, Referring Pro vider Active Team Status: Active Member Role Status Dates Dr. Kris Tong , DO Primary Care Prov ider, Referring Provider, Other Provider Active Dr. Carrillo Saab , DO Attending Provider Active Team Status: Inactive Member Role Status Dates Dr. Kris Tong , DO Primary Care Prov ider, Attending Provider, Referring Provider Active Team Status: Inactive Member Role Status Dates Dr. Kris Tong , DO Primary Care Provider Active Dr. Libra Draper MD Attending Provider, Referri ng Provider Active (unrecognized sect ion and content) No Status Records Found INFORMATION SOURCE (unrecogn ized section and content) DATE CREATED AUTHOR 11/08/2024 [facility] FOR RECORDS PERTAINING TO PATIENTS WHO ARE OR HAVE BEEN ENROLLED IN A CHEMICAL DEPENDENCY/SUBSTANCEABUSE PROGRAM, SOME INFORMATION MAY BE OMITTED. This clinical summary was aggregated from multiple sources. Caution should be exercised in using it in the provision of clinical care. This summary normalizes information from multiple sources, and as a consequence, information in this document may materially change the coding, format and clinical context of patient data. In addition, data may be omitted in some cases. CLINICAL DECISIONS SHOULD BE BASED ON THE PRIMARY CLINICAL RECORDS. [employer] [facility]. provides no warranty or guarantee of the accuracy or completeness of information in this document.
[2024-12-25 10:32] LABS: Hematocrit 40.8 % (40-54); Hemoglobin 13.5 g/dL (13.0-16.5); Mean Corp Hgb Conc 33.1 g/dL (32-36); Mean Corpuscular Hgb 29.6 pg (27.0-32.0); Mean Corpuscular Volume 89.5 fL (80-94); Mean Platelet Vol. 11.2 fl (6.2-12.0); Platelet Count 175 K/mm3 (150-450); RBC Distribution Width CV 12.7 % (11.6-14.6); RBC Distribution Width SD 42.1 fl (35.1-43.9); Red Blood Count 4.56 M/mm3 (4.6-6.2); White Blood Count 8.5 K/mm3 (4.4-11.0)
[2024-12-25 11:00] LABS: PTHIN 41 pg/mL (11-61)
[2024-12-25 11:17] LABS: Microalbumin:Creatinine Ratio 184.9 mg/g CRE; Protein:Creat Ratio 496 mg/g CRE (0-200)
[2024-12-25 11:25] LABS: Phosphorus 4.1 mg/dL (2.7-4.5)
[2024-12-25 11:30] LABS: Albumin, Serum 3.7 g/dL (3.4-4.8); Anion Gap 10 (5-15); BUN 27 mg/dL (4-19); Calcium,Total 9.1 mg/dL (7.6-11.0); Carbon Dioxide 24.4 mmol/L (21.0-32.0); Chloride 106 mmol/L (98-108); Creatinine, Serum 1.61 mg/dL (0.70-1.20); EST Glomerular Filtration Rate 48 (>60); Glucose 84 mg/dL (70-99); Sodium Level 140 mmol/L (133-145); Vitamin D,25 Hydroxy 42.1 ng/mL (30-100)
== END | disposition home or self-care (01) ==
LOC: MTLAB 07:20
PROVIDERS: PCP Family Medicine; Referring Provider Internal Medicine Nephrology; Visit Provider Internal Medicine Nephrology
DX: N25.81 Secondary hyperparathyroidism of renal origin (principal); N18.32 Chronic kidney disease, stage 3b; R80.9 Proteinuria, unspecified
CPT/HCPCS: 36415; 80069; 82043; 82306; 82570; 83970; 84156; 85027

== ENCOUNTER → 2025-01-23 | Outpatient (CLI) | payer OTHER, SELFPAY ==
--- OUTSIDE RECORDS SUMMARY | 2025-01-23 07:23 | XMS RPT_ITS | CCD ---
Author Organization [facility] Care Team Providers Care Design Technology Teacher Name Role Phone Dr. Kris Tong Primary Care Provider Dr. Anand Andrea Attending Provider Dr. Anand Andrea Referring Provider Dr. Kris Tong Referring Provider Priscila Aragon Attending Provider Unavailable Dr. Kris Tong Primary Care Provider Dr. Kris Tong Referring Provider Dr. Anand Andrea Attending Provider Dr. Kris Tong Primary Care Provider Dr. Anand Andrea Attending Provider Dr. Anand Andrea Referring Provider Dr. Kris Tong Referring Provider Dr. Kris Tong Other Provider Dr. Carrillo Saab Attending Provider Dr. Kris Tong DO Primary Care Provider Dr. Anand Andrea MD Attending Provider [phone] Baron NUNEZ, Dr. Smyth Attending Provider Dr. Libra Draper MD Referring Provider Kris Tong Attending Unavailable Kris Tong Referring Unavailable Kris Tong Primary Care Unavailable Anand Andrea Attending Unavailable Kris Tong Primary Care Unavailable Kris Tong Referring Unavailable Roof Nithin LOPES Attending Unavailable Kris Tong Primary Care Unavailable Zully, Anand Attending Unavailable Zully, Blackstone Referring Unavailable AlyciaKris sargent Primary Care Unavailable Zully, Blackstone Attending Unavailable Kris Tong Primary Care Unavailable Zully, Blackstone Attending Unavailable Zully, Blackstone Referring Unavailable AlyciaKris sargent Primary Care Unavailable Zully, Anand Attending Unavailable AlyciaKris sargent Primary Care Unavailable Zully, Anand Referring Unavailable Zully, Anand Referring Unavailable Zully, Anand Attending Unavailable Kris Tong Primary Care Unavailable Zully, Blackstone Referring Unavailable Kris Tong Primary Care Unavailable BaronChristine alexandras Attending Unavailable BaronStevie alexandrayaprakas Referring Unavailable Medications Current Medications Medication Drug Class(es) Dates Sig (Normalized) Sig (Original) aspirin 81 mg delayed release oral tablet (6 sources) Platelet Aggregation Inhibitor, Nonsteroidal Anti-inflammatory Drug Start: 12-08-2020 take 1 tablet by mouth once daily Aspirin (Adult Aspirin Regimen) 81 mg tablet,delayed release (DR/EC) Active 81 mg PO DAILY December 08, 2020 12:00am atorvastatin 20 mg oral tablet (12 sources) HMG-CoA Reductase Inhibitor Start: 11-12-2019 take 1 tablet by mouth at bedtime Atorvastatin 20 mg tablet Active 20 mg PO AT BEDTIME November 12, 2019 12:00am Start: 06-28-2017 End: 11-12-2019 Atorvastatin 10 mg tablet Di scontinued PO 30 0 June 28, 2017 1:00am November 12, 2019 9:05am Start: 06-28-2017 End: 11-12-2019 Atorvastatin Discontinued PO June 28, 2017 1:00am November 12, 2019 9:05am cholecalciferol 0.125 mg oral tablet (6 sources) Vitamin D Start: 05-05-2022 take 1 tablet by mouth once daily Cholecalciferol (Vitamin D3) 125 mcg (5,000 unit) tablet Active 125 ug PO DAILY May 05, 2022 12:00am Start: 12-15-2017 take 1 capsule by [facility] once daily cholecalciferol (vitamin D3) 4,000 unit capsule Active 4000 UNIT PO daily December 15, 2017 3:07pm dapagliflozin 10 mg oral tablet (4 sources) Sodium-Glucose Cotransporter 2 Inhibitor Start: 05-05-2022 take 1 tablet by mouth once daily Dapagliflozin Propanediol (Farxiga) 10 mg tablet Active 10 mg PO DAILY May 05, 2022 12:00am glipiZIDE 10 mg oral tablet (18 sources) Sulfonylurea Start: 12-08-2020 take 1 tablet by mouth once daily Glipizide 10 mg tablet Active 10 mg PO DAILY December 08, 2020 12:00am Start: 12-15-2017 End: 12-08-2020 take 1 tablet by mouth once daily Glipizide 2.5 mg tablet extended release 24hr Discontinued 2.5 mg PO daily December 15, 2017 12:00am December 08, 2020 9:28am Start: 06-28-2017 End: 12-15-2017 take 1 tablet by mouth once daily Glipizide 5 mg tablet Discontinued 5 mg PO daily June 28, 2017 1:00am December 15, 2017 3:06pm levothyroxine sodium 0.075 mg oral tablet (11 sources) l-Thyroxine Start: 12-08-2021 take 1 tablet by mouth once daily Levothyroxine 75 mcg tablet Active 75 ug PO DAILY December 08, 2021 12:00am Start: 06-28-2017 End: 12-08-2021 take 1 capsule by mouth once daily Levothyroxine 75 mcg capsule Discontinued 75 ug PO daily 0 June 28, 2017 1:00am December 08, 2021 8:58am lisinopril 20 mg oral tablet (12 sources) Angiotensin Converting Enzyme Inhibitor Start: 12-15-2017 take 1 tablet by mouth once daily Lisinopril 20 mg tablet Active 20 mg PO daily December 15, 2017 12:00am Start: 06-28-2017 End: 12-15-2017 take 1 tablet by mouth once daily Lisinopril 40 mg tablet Discontinued 40 mg PO daily June 28, 2017 1:00am December 15, 2017 3:06pm SITagliptin 100 mg oral tablet (11 sources) Dipeptidyl Peptidase 4 Inhibitor Start: 06-28-2017 End: 12-08-2021 take 1 tablet by mouth once daily Sitagliptin Phosphate 100 mg tablet Active 100 mg PO DAILY 30 30 0 December 08, 2021 8:59am Start: 06-28-2017 End: 12-08-2021 Sitagliptin Phosphate 100 mg tablet Discontinued PO 30 0 June 28, 2017 1:00am December 08, 2021 9:00am Completed/Discontinued Medications Medication Drug Class(es) Dates Sig (Normalized) Sig (Original) cholecalciferol (vitamin D3) 4,000 unit capsule (2 sources) Start: 12-15-2017 End: 05-05-2022 take 1 capsule by mouth once daily cholecalciferol (vitamin D3) 4,000 unit capsule Discontinued 4000 UNIT PO daily December 15, 2017 12:00am May 05, 2022 11:09am Cholecalciferol (Vitamin D3) 4,000 unit capsule (2 sources) Start: 12-15-2017 End: 05-05-2022 take 1 capsule by mouth once daily Cholecalciferol (Vitamin D3) 4,000 unit capsule Discontinued 4000 U PO daily December 15, 2017 12:00am May 05, 2022 11:09am 24 hr metoprolol succinate 25 mg extended release oral tablet (12 sources) beta-Adrenergic Cale Start: 11-12-2019 End: 05-05-2022 take 1 tablet by mouth once daily Metoprolol Succinate 25 mg tablet extended release 24 hr Discontinued 25 mg PO DAILY November 12, 2019 12:00am May 05, 2022 11:08am Start: 12-15-2017 End: 11-12-2019 take 1 tablet by mouth twice daily Metoprolol Tartrate 25 mg tablet Discontinued 25 mg PO TWICE A DAY December 15, 2017 12:00am November 12, 2019 9:06am rivaroxaban 20 mg oral tablet (18 sources) Factor Xa Inhibitor Start: 05-11-2018 End: 11-08-2018 take 1 tablet by mouth once daily Rivaroxaban (Xarelto) 20 mg tablet Discontinued 20 mg PO DAILY May 11, 2018 1:00am November 08, 2018 3:16pm Start: 12-15-2017 End: 05-11-2018 take 1 tablet by mouth twice daily Rivaroxaban (Xarelto) 15 mg tablet Discontinued 15 mg PO .COMPLEX December 15, 2017 12:00am May 11, 2018 10:09am 15 mg PO BID for PE per Dr. Tong Start: 07-24-2017 End: 12-14-2017 take 1 tablet by mouth once daily at mealtime Rivaroxaban (Xarelto) 15 mg tablet Discontinued 15 mg PO daily 30 July 24, 2017 1:00am December 14, 2017 5:49pm administer with meals Problems Active Problems Problem Classification Problem Date Documented Date Episodic/Chronic Cardiac dysrhythmias (20 sources) Paroxysmal supraventricular tachycardia; Translations: [Supraventricular tachycardia] Onset: 4 Chronic Comment on above: RFA 11/10/2017 RFA for [place] 11/10/5017 and 04/06/2018 Conduction disorders (20 sources) Right bundle branch block AND left posterior fascicular block; Translations: [Bifascicular block] Onset: 2 Chronic Comment on above: Biotronik Enitra 8 D R-T (Serial # [id number]); Atrial Lead Solia S 53; Ventricular Lead Solia S 60; Implanted 04/22/22 in [facility]; Diabetes mellitus with complications (1 source) Type 2 diabetes mellitus with diabetic nephropathy; Translations: [Type 2 diabetes mellitus with diabetic nephropathy] Onset: 5 Chronic Essential hypertension (6 sources) Essential hypertension; Translations: [Essential (primary) hypertension] 11-01-2018 Chronic Other diseases of kidney and ureters (1 source) Secondary hyperparathyroidism of renal origin; Translations: [Secondary hyperparathyroidism of renal origin] Onset: 5 Chronic Other screening for suspected conditions (not mental disorders or infectious disease) (1 source) Encounter for screening for malignant neoplasm of prostate; Translations: [Encounter for screening for malignant neoplasm of prostate] Onset: 5 Episodic Past or Other Problems Problem Classification Problem Date Documented Date Episodic/Chronic Pulmonary heart disease (12 sources) Pulmonary embolism; Translations: [Other pulmonary embolism without acute cor pulmonale] Onset: 12-01-2017 12-05-2020 Episodic Comment on above: bilateral Residual codes; unclassified (3 sources) Other specified postprocedural states; Translations: [Personal history of surgery to other organs] Onset: 04-06-2018 Episodic Results Test Name Value Interpretation Reference Range Facility Anion gap in Serum or Plasma Ordered By: Libra Draper on 12-25-2024 Anion gap [Moles/Vol] 10 mmol/L 11-14 [facility] BUN/creatinine ratioOrdered By: Libra Draper on 12-25-2024 Urea nitrogen/Creatinine [Mass ratio] 17.0 mg/mg 04-21 [facility] CBC-Complete Blood Cnt No Di ffon 12-25-2024 Erythrocyte distribution width (RBC) [Ratio] 12.7 % Normal 11.6-14.6 [facility] Comment on above: Performed By: #### L 509.1000, L506.1001, L501.0900, L500.3600, L502.0250, L100.0500 #### [facility] [address] [place], [address] Hematocrit (Bld) [Volume fraction] 40.8 % Normal 40-54 [facility] Comment on above: Performed By: #### L 509.1000, L506.1001, L501.0900, L500.3600, L502.0250, L100.0500 #### [facility] [address] [place], [address] Hemoglobin (Bld) [Mass/Vol] 13.5 g/dL Normal 13.0-16.5 [facility] Comment on above: Performed By: #### L 509.1000, L506.1001, L501.0900, L500.3600, L502.0250, L100.0500 #### [facility] [address] [place], [address] MCH (RBC) [Entitic mass] 29.6 pg Normal 27.0-32.0 [facility] Comment on above: Performed By: #### L 509.1000, L506.1001, L501.0900, L500.3600, L502.0250, L100.0500 #### [facility] [address] [place], [address] MCHC (RBC) [Mass/Vol] 33.1 g/dL Normal 32-36 [facility] Comment on above: Performed By: #### L 509.1000, L506.1001, L501.0900, L500.3600, L502.0250, L100.0500 #### [facility] [address] [place], [address] MCV (RBC) [Entitic vol] 89.5 fL Normal 80-[address] [facility] Comment on above: Performed By: #### L 509.1000, L506.1001, L501.0900, L500.3600, L502.0250, L100.0500 #### [facility] [address] [place], [address] Platelet mean volume (Bld) [Entitic vol] 11.2 fL Normal 6.2-12.0 [facility] Comment on above: Performed By: #### L 509.1000, L506.1001, L501.0900, L500.3600, L502.0250, L100.0500 #### [facility] [address] [place], [address] Platelets (Bld) [#/Vol] 175 10*3/uL Normal 150-450 [facility] Comment on above: Performed By: #### L 509.1000, L506.1001, L501.0900, L500.3600, L502.0250, L100.0500 #### [facility] [address] [place], [address] RBC (Bld) [#/Vol] 4.56 10*6/uL Low 4.6-6.2 [facility] Comment on above: Performed By: #### L 509.1000, L506.1001, L501.0900, L500.3600, L502.0250, L100.0500 #### [facility] [address] [place], [address] RDW SD 42.1 fl Normal 35.1-43.9 [facility] Comment on above: Performed By: #### L 509.1000, L506.1001, L501.0900, L500.3600, L502.0250, L100.0500 #### [facility] [address] [place], [address] WBC (Bld) [#/Vol] 8.5 10*3/uL Normal 4.4-11.0 [facility] Comment on above: Performed By: #### L 509.1000, L506.1001, L501.0900, L500.3600, L502.0250, L100.0500 #### [facility] [address] [place], [address] Carbon dioxide, total [Moles /volume] in Central venous bloodOrdered By: Libra Draper on 12-25-2024 CO2 [Moles/Vol] 24.4 mmol/L 21.0-32.0 [facility] Chloride assayOrdered By: Stevie Draper on 12-25-2024 Chloride [Moles/Vol] 106 mmol/L 98-108 [facility] Erythrocyte distribution wid th ratioOrdered By: Libra Draper on 12-25-2024 Erythrocyte distribution width (RBC) [Ratio] 12.7 % 11.6-14.6 [facility] Erythrocyte distribution wid th standard deviationOrdered By: Libra Draper on 12-25-2024 Erythrocyte distribution width (RBC) [Ratio] 42.1 fl 35.1-43.9 [facility] Glomerular filtration rate ( GFR) estimation/1.73 sq m using serum, plasma, or whole bOrdered By: Libra Draper on 12-25-2024 GFR/1.73 sq M.predicted among non-blacks MDRD (S/P/Bld) [Vol rate/Area] 48 mL/min/{1.73_m2} Low >60 [facility] Comment on above: mL/min/1.73m2 CKD-EP I Creatinine Equation (2020) Hematocrit Auto (Bld) [Volum e fraction]Ordered By: Libra Draper on 12-25-2024 Hematocrit (Bld) [Volume fraction] 40.8 % 40-54 [facility] Hemoglobin measurementOrdere d By: Libra Draper on 12-25-2024 Hemoglobin (Bld) [Mass/Vol] 13.5 g/dL 13.0-16.5 [facility] MCV (mean corpuscular volume ) determinationOrdered By: Libra Draper on 12-25-2024 MCV (RBC) [Entitic vol] 89.5 fL 80-[address] [facility] Mean corpuscular hemoglobin (MCH) determinationOrdered By: Libra Draper on 12-25-2024 MCH (RBC) [Entitic mass] 29.6 pg 27.0-32.0 [facility] Mean corpuscular hemoglobin concentration (MCHC) determinationOrdered By: Libra Draper on 12-25-2024 MCHC (RBC) [Mass/Vol] 33.1 g/dL 32-36 [facility] Mean platelet volume determi nationOrdered By: Libra Draper on 12-25-2024 Platelet mean volume (Bld) [Entitic vol] 11.2 fL 6.2-12.0 [facility] Microalb:Creat Ratio,Random URon 12-25-2024 MALB:CREAT 184.9 mg/g CRE Normal [facility] Comment on above: Performed By: #### L 509.1000, L506.1001, L501.0900, L500.3600, L502.0250, L100.0500 #### [facility] [address] [place], [address] MICROALBUMIN,UR 257.0 mg/L Normal NO RANGE EST. [facility] Comment on above: Performed By: #### L 509.1000, L506.1001, L501.0900, L500.3600, L502.0250, L100.0500 #### [facility] [address] [place], [address] PTHINon 12-25-2024 PTH 41 pg/mL Normal 11-61 [facility] Comment on above: Performed By: #### L 509.1000, L506.1001, L501.0900, L500.3600, L502.0250, L100.0500 #### [facility] [address] [place], [address] Platelet countOrdered By: Stevie Draper on 12-25-2024 Platelets (Bld) [#/Vol] 175 10*3/uL 150-450 [facility] Potassium measurement (mass/ volume)Ordered By: Libra Draper on 12-25-2024 Potassium (Unsp spec) [Mass/Vol] 4.0 mmol/L 3.3-5.1 [facility] Comment on above: Hemolysis present, R esults could be affected. Protein+Creatinine Ratio,Uri neon 12-25-2024 PROT:CRE RATIO 496 mg/g CRE High 0-200 [facility] Comment on above: Performed By: #### L 509.1000, L506.1001, L501.0900, L500.3600, L502.0250, L100.0500 #### [facility] [address] [place], [address] Protein (U) [Mass/Vol] 69.0 mg/dL High 0.0-12.[address] [facility] Comment on above: Performed By: #### L 509.1000, L506.1001, L501.0900, L500.3600, L502.0250, L100.0500 #### [facility] [address] [place], [address] RBC Auto (Bld) [#/Vol]Ordere d By: Libra Draper on 12-25-2024 RBC (Bld) [#/Vol] 4.56 10*6/uL Low 4.6-6.2 [facility] Random urine creatinine lisette urement (mass/volume)Ordered By: Libra Draper on 12-25-2024 Creatinine Unsp time (U) [Mass/Vol] 139.00 mg/dL 39.00-259.00 [facility] Renal Profileon 12-25-2024 Albumin [Mass/Vol] 3.7 g/dL Normal 3.4-4.8 [facility] Comment on above: Performed By: #### L 509.1000, L506.1001, L501.0900, L500.3600, L502.0250, L100.0500 #### [facility] [address] [place], [address] BUN/CRE 17.0 RATIO Normal 10-20 [facility] Comment on above: Performed By: #### L 509.1000, L506.1001, L501.0900, L500.3600, L502.0250, L100.0500 #### [facility] [address] [place], [address] Calcium [Mass/Vol] 9.1 mg/dL Normal 7.6-11.0 [facility] Comment on above: Performed By: #### L 509.1000, L506.1001, L501.0900, L500.3600, L502.0250, L100.0500 #### [facility] [address] [place], [address] Chloride [Moles/Vol] 106 mmol/L Normal 98-108 [facility] Comment on above: Performed By: #### L 509.1000, L506.1001, L501.0900, L500.3600, L502.0250, L100.0500 #### [facility] [address] [place], [address] CO2 [Moles/Vol] 24.4 mmol/L Normal 21.0-32.0 [facility] Comment on above: Performed By: #### L 509.1000, L506.1001, L501.0900, L500.3600, L502.0250, L100.0500 #### [facility] [address] [place], [address] Creatinine [Mass/Vol] 1.61 mg/dL High 0.70-1.20 [facility] Comment on above: Performed By: #### L 509.1000, L506.1001, L501.0900, L500.3600, L502.0250, L100.0500 #### [facility] [address] [place], [address] GAP 10 Normal 5-15 [facility] Comment on above: Performed By: #### L 509.1000, L506.1001, L501.0900, L500.3600, L502.0250, L100.0500 #### [facility] [address] [place], [address] GFR/1.73 sq M.predicted among non-blacks MDRD (S/P/Bld) [Vol rate/Area] 48 mL/min/{1.73_m2} Low >60 [facility] Comment on above: Result Comment: mL/m in/1.73m2 CKD-EPI Creatinine Equation (2020) Performed By: #### L 509.1000, L506.1001, L501.0900, L500.3600, L502.0250, L100.0500 #### [facility] [address] [place], [address] Glucose [Mass/Vol] 84 mg/dL Normal 70-99 [facility] Comment on above: Performed By: #### L 509.1000, L506.1001, L501.0900, L500.3600, L502.0250, L100.0500 #### [facility] [address] [place], [address] Potassium [Moles/Vol] 4.0 mmol/L Normal 3.3-5.1 [facility] Comment on above: Result Comment: Hemo lysis present, Results??could be affected. ?? Performed By: #### L 509.1000, L506.1001, L501.0900, L500.3600, L502.0250, L100.0500 #### [facility] [address] [place], [address] Sodium [Moles/Vol] 140 mmol/L Normal 133-145 [facility] Comment on above: Performed By: #### L 509.1000, L506.1001, L501.0900, L500.3600, L502.0250, L100.0500 #### [facility] [address] [place], [address] Urea nitrogen [Mass/Vol] 27 mg/dL High - [facility] Comment on above: Performed By: #### L 509.1000, L506.1001, L501.0900, L500.3600, L502.0250, L100.0500 #### [facility] [address] [place], [place], [id number] [phone] Serum creatinine measurement (mass/volume)Ordered By: Libra Draper on 12-25-2024 Creatinine [Mass/Vol] 1.61 mg/dL High 0.70-1.20 [facility] Serum glucose measurement (m ass/volume)Ordered By: Libra Draper on 12-25-2024 Glucose [Mass/Vol] 84 mg/dL 70-99 [facility] Serum or plasma albumin lisette urement (mass/volume)Ordered By: Libra Draper on 12-25-2024 Albumin [Mass/Vol] 3.7 g/dL 3.4-4.8 [facility] Serum or plasma calcium lisette urement (mass/volume)Ordered By: Libra Draper on 12-25-2024 Calcium [Mass/Vol] 9.1 mg/dL 7.6-11.0 [facility] Serum or plasma urea nitroge n measurement (mass/volume)Ordered By: Libra Draper on 12-25-2024 Urea nitrogen [Mass/Vol] 27 mg/dL High - [facility] Sodium levelOrdered By: Chance Draper on 12-25-2024 Sodium [Moles/Vol] 140 mmol/L 133-145 [facility] Urine albumin measurement wi th detection limit of 20 mg/L or less (mass/volume)Ordered By: Libra Draper on 12-25-2024 Albumin DL <= 20 mg/L (U) [Mass/Vol] 257.0 mg/L NO RANGE EST. [facility] Urine protein measurement (m ass/volume)Ordered By: Libra Draper on 12-25-2024 Protein (U) [Mass/Vol] 69.0 mg/dL High 0.0-12.[address] [facility] Urine protein/creatinine mas s ratioOrdered By: Libra Draper on 12-25-2024 Protein/Creatinine (U) [Mass ratio] 496 mg/g CRE High 0-200 [facility] Vitamin D,25 Hydroxyon 12-25 Vitamin D 25-OH 42.1 ng/mL Normal 30-100 [facility] Comment on above: Result Comment: Roxann min D Status Deficiency: <20 ng/mL (50nmol/L) Insufficiency: 20-30 ng/mL (50-75 nmol/L) Sufficiency: 30-100 ng/mL (75-250 nmol/L) Toxicity: >100 ng/mL (>250 nmol/L) Performed By: #### L 509.1000, L506.1001, L501.0900, L500.3600, L502.0250, L100.0500 #### [facility] [address] [place], [place], [address] White blood cell (WBC) count Ordered By: Libra Draper on 12-25-2024 WBC (Bld) [#/Vol] 8.5 10*3/uL 4.4-11.0 [facility] Cardiology Visit Reporton Cardiology Visit Report [facility] [address] [place], [place] [address] OFFICE VISIT Date of Service: 02/20/24 MR#: [id number] Acct: [id number] Name: RUSLAN MORIN Rep #: [id number] : 1960 Provider: BHAVANA aparicio Age/Sex: 63/M Location: [facility] Status: Signed [facility] History of Present Illness Details: RUSLAN MORIN, [...] supraventricular tachyarrhythmia and he was sent to [facility]. He had an EP study which [...] with a dual-chamber Biotronik device. While in [facility] he states he underwent MRI of brain [...] Visit Reasons: 1 Y FU (MOVED FROM [facility]) / [place] @ 10 [employer] Required: No Accompanied by: Self Allergies No [...] PO DAILY 05/05/22 02/20/24 History tablet (Farxiga) [facility] Medical History (Reviewed 02/20/24 @ 10:53 by Nithin Encinas FOXING CUTTING MACHINE OPERATOR, FOXING CUTTING MACHINE OPERATOR-C) Second degree AV block, Mobitz type II Paroxysmal supraventricular tachycardia Obesity History of pulmonary embolus (PE) (12/2017) Diabetic neuropathy Type 2 diabetes mellitus Essential (primary) hypertension Sustained ventricular tachycardia Paroxysmal atrial fibrillation 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 Normal [facility] Pacemaker Checkon 02-20-2024 Pacemaker Check [facility] [address] [place] [address] Pacemaker Check Date of Service: 02/20/24 1353 MR#: [id number] Acct: [id number] Name: RUSLAN MORIN Rep #: [id number] : 1960 From: Priscila Aragon Age/Sex: 63/M Location: [facility] [place] Status: Signed Billing Codes PM Device Codes: PM Dev Prog Eval, Dual Assessment and Plan Assessment and Plan (1) Second degree AV block, Mobitz type II: Status: Acute (2) Presence of permanent cardiac pacemaker: Status: Acute Comment: Biotronik Enitra 8 -T (Serial # [id number]); Atrial Lead Solia S 53; Ventricular Lead Solia S 60; Implanted 04/22/22 in [facility]; (3) Sustained ventricular tachycardia: Status: Chronic Comment: RFA for [place] 11/10/5017 and 04/06/2018 (4) Paroxysmal supraventricular tachycardia: Status: Chronic Comment: RFA 11/10/2017 (5) 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 Draper on 10-20-2022 Basophil percentage 4.2 mg/dL 2.5-4.9 [facility] Chloride [Moles/Vol] 106 mmol/L 98-107 [facility] Glucose [Mass/Vol] 127 mg/dL 74-106 [facility] Comment on above: Fasting Glucose resu lt greater than or equal to 126 mg/dL suggests DIABETES MELLITUS per A.D.A. criteria. Potassium [Moles/Vol] 3.9 mmol/L 3.5-5.1 [facility] Sodium [Moles/Vol] 137 mmol/L 136-145 [facility] WBC (Bld) [#/Vol] 6.4 10*3/uL 4.4-11.0 [facility] Blood erythrocytes count (nu mber/volume)Ordered By: Dr. Draper on 10-20-2022 RBC (Bld) [#/Vol] 5.27 10*6/uL 4.6-6.2 [facility] Blood hemoglobin measurement (mass/volume)Ordered By: Dr. Draper on 10-20-2022 Hemoglobin (Bld) [Mass/Vol] 15.1 g/dL 13.0-16.5 [facility] Blood platelet mean volumeOr dered By: Dr. Draper on 10-20-2022 Platelet mean volume (Bld) [Entitic vol] 11.3 fL 6.2-12.0 [facility] Determination of erythrocyte mean corpuscular volume (MCV)Ordered By: Dr. Draper on 10-20-2022 MCV (RBC) [Entitic vol] 91.1 fL 80-[address] [facility] Hematocrit Auto (Bld) [Volum e fraction]Ordered By: Dr. Draper on 10-20-2022 Hematocrit (Bld) [Volume fraction] 48.0 % 40-54 [facility] Laboratory - Chemistry and C hemistry - challengeOrdered By: Dr. Draper on 10-20-2022 CO2 [Moles/Vol] 25.0 mmol/L 21.0-32.0 [facility] Urea nitrogen/Creatinine [Mass ratio] 20.5 mg/mg 10- [facility] Laboratory - Hematology and Cell countsOrdered By: Dr. Draper on 10-20-2022 Erythrocyte distribution width (RBC) [Entitic vol] 45.3 fL 35.1-43.9 [facility] Erythrocyte distribution width (RBC) [Ratio] 13.4 % 11.6-14.6 [facility] MCH (RBC) [Entitic mass] 28.7 pg 27.0-32.0 [facility] MCHC Auto (RBC) [Mass/Vol]Or dered By: Dr. Draper on 10-20-2022 MCHC (RBC) [Mass/Vol] 31.5 g/dL 32-36 [facility] No Panel InformationOrdered By: Dr. Draper on 10-20-2022 Estimated GFR (MDRD) Amer 47 mL/min >60 [facility] Comment on above: GFR Calc Estimated GFR (MDRD) Non-Af Amer 39 mL/min >60 [facility] Comment on above: Non- GFR Calc Parathyroid Hormone (Intact) 80.8 pg/mL 18.4-80.1 [facility] Vitamin D 25-Hydroxy 61.1 ng/mL [facility] Comment on above: Vitamin D 25(OH) Sta tus Range Deficiency <20 ng/mL (50nmol/L) Insufficiency 20 - 30 ng/mL (50 - 75 nmol/L) Sufficiency 30 - 100 ng/mL (75 - 250 nmol/L) Toxicity >100 ng/mL (>250 nmol/L) Platelets bldOrdered By: Dr. Draper on 10-20-2022 Platelets (Bld) [#/Vol] 159 10*3/uL 150-450 [facility] Serum or plasma albumin lisette urement (mass/volume)Ordered By: Dr. Draper on 10-20-2022 Albumin [Mass/Vol] 3.7 g/dL 3.2-5.0 [facility] Serum or plasma calcium lisette urement (mass/volume)Ordered By: Dr. Draper on 10-20-2022 Calcium [Mass/Vol] 9.0 mg/dL 8.5-10.1 [facility] Serum or plasma creatinine m easurement (mass/volume)Ordered By: Dr. Draper on 10-20-2022 Creatinine [Mass/Vol] 1.90 mg/dL 0.70-1.30 [facility] Comment on above: The validity of the calculated GFR & GFRAA in patients over 70 years has not been determined. Clinical correlation is essential. Serum or plasma urea nitroge n measurement (mass/volume)Ordered By: Dr. Draper on 10-20-2022 Urea nitrogen [Mass/Vol] 39 mg/dL 7-18 [facility] Urine creatinine measurement (mass/volume)Ordered By: Dr. Draper on 10-20-2022 Creatinine (U) [Mass/Vol] 93.30 mg/dL NO RANGE EST. [facility] Urine protein measurement (m ass/volume)Ordered By: Dr. Draper on 10-20-2022 Protein (U) [Mass/Vol] 29.7 mg/dL 0.0-11.[address] [facility] Urine protein/creatinine mas s ratioOrdered By: Dr. Draper on 10-20-2022 Protein/Creatinine (U) [Mass ratio] 318 mg/g CRE 0-200 [facility] Absolute lymphocyte counton 04-12-2022 Lymphocytes Auto (Unsp spec) [#/Vol] 2.37 10*3/uL 0.83-4.51 [facility] Work Phone: Basophil percentageon 2021 Basophils/100 WBC (Bld) 1.0 % 0-1 [facility] Work Phone: Bilirubin [Mass/Vol] 0.60 mg/dL 0.20-1.00 [facility] Work Phone: Comment on above: For patients on eltr ombopag therapy, use of Dimension [place] TBIL is not recommended. Chloride [Moles/Vol] 106 mmol/L 98-107 [facility] Work Phone: Cholesterol [Mass/Vol] 95 mg/dL <[address] [facility] Work Phone: Comment on above: <200 mg/dL Desirable 200-240 mg/dL Borderline >240 mg/dL High Risk Eosinophils/100 WBC (Bld) 5.1 % 0-5 [facility] Work Phone: Glucose [Mass/Vol] 112 mg/dL 74-106 [facility] Work Phone: Comment on above: Fasting Glucose resu lt from 100 to 125 mg/dL suggests IMPAIRED HOMEOSTASIS per A.D.A. criteria. Neutrophils (Bld) [#/Vol] 4.5 10*3/uL 2.0-7.7 [facility] Work Phone: Neutrophils/100 WBC (Bld) 57.0 % 47-70 [facility] Work Phone: [phone] Potassium [Moles/Vol] 4.1 mmol/L 3.5-5.1 [facility] Work Phone: Protein [Mass/Vol] 7.2 g/dL 6.4-8.2 [facility] Work Phone: Sodium [Moles/Vol] 140 mmol/L 136-145 [facility] Work Phone: Triglyceride [Mass/Vol] 143 mg/dL <[address] [facility] Work Phone: Comment on above: The drugs N-Acetylcy steine and Metamizole may falsely depress this assay.Serum Triglycerides Reference Interval Normal <150 mg/dL Borderline high 150 - 199 mg/dL High 200 - 499 mg/dL Very High > or = 500 mg/dL WBC (Bld) [#/Vol] 7.9 10*3/uL 4.4-11.0 [facility] Work Phone: Blood erythrocytes count (nu mber/volume)on 04-12-2022 RBC (Bld) [#/Vol] 4.71 10*6/uL 4.6-6.2 [facility] Work Phone: Blood hemoglobin measurement (mass/volume)on 04-12-2022 Hemoglobin (Bld) [Mass/Vol] 13.8 g/dL 13.0-16.5 [facility] Work Phone: Blood lymphocytes/100 leukoc yteson 04-12-2022 Lymphocytes/100 WBC (Bld) 29.9 % 19-41 [facility] Work Phone: Blood monocytes/100 leukocyt eson 04-12-2022 Monocytes/100 WBC (Bld) 6.7 % 0-[address] [facility] Work Phone: Blood platelet mean volumeon 04-12-2022 Platelet mean volume (Bld) [Entitic vol] 11.6 fL 6.2-12.0 [facility] Work Phone: [phone] Determination of erythrocyte mean corpuscular volume (MCV)on 04-12-2022 MCV (RBC) [Entitic vol] 91.5 fL 80-[address] [facility] Work Phone: [phone] Hematocrit Auto (Bld) [Volum e fraction]on 04-12-2022 Hematocrit (Bld) [Volume fraction] 43.1 % 40-54 [facility] Work Phone: [phone] Laboratory - Chemistry and C hemistry - challengeon 04-12-2022 ALP [Catalytic activity/Vol] 104 U/L 45-117 [facility] Work Phone: [phone] ALT [Catalytic activity/Vol] 26 U/L 16-61 [facility] Work Phone: [phone] CO2 [Moles/Vol] 27.0 mmol/L 21.0-32.0 [facility] Work Phone: [phone] Globulin (S) [Mass/Vol] 3.7 g/dL 2.2-4.[address] [facility] Work Phone: [phone] Urea nitrogen/Creatinine [Mass ratio] 21.4 mg/mg 10-20 [facility] Work Phone: [phone] Laboratory - Hematology and Cell countson 04-12-2022 Erythrocyte distribution width (RBC) [Entitic vol] 43.5 fL 35.1-43.9 [facility] Work Phone: [phone] Erythrocyte distribution width (RBC) [Ratio] 13.0 % 11.6-14.6 [facility] Work Phone: [phone] Immature granulocytes/100 WBC (Bld) 0.300 % 0.0-0.9 [facility] Work Phone: [phone] Comment on above: IG% - Immature Granu locytes (promyelocytes, myelocytes and metamyelocytes) > 1% indicates that a LEFT SHIFT is Present. MCH (RBC) [Entitic mass] 29.3 pg 27.0-32.0 [facility] Work Phone: Nucleated RBC/100 WBC (Bld) [Ratio] 0 % 0-5 [facility] Work Phone: [phone] MCHC Auto (RBC) [Mass/Vol]on 04-12-2022 MCHC (RBC) [Mass/Vol] 32.0 g/dL 32-36 [facility] Work Phone: No Panel Informationon 04-12 Estimated GFR (MDRD) Amer 45 mL/min >60 [facility] Work Phone: Comment on above: GFR Calc Estimated GFR (MDRD) Non-Af Amer 37 mL/min >60 [facility] Work Phone: Comment on above: Non- GFR Calc Prostate Specific Antigen Screen 0.84 ng/mL 0.00-4.00 [facility] Work Phone: Comment on above: This test was perfor med using the TPSA assay method for [employer] chemistry system. Values obtained with differentassay methods cannot be used interchangably.When changing PSA assays in the course of monitoring apatient, additional sequential testing should be carriedout to confirm baseline values. Thyroid Stimulating Hormone (TSH) 1.77 uIU/mL 0.358-3.74 [facility] Work Phone: Urine Microalbumin/Creatinine Ratio 74.0 mg/g CRE <30 [facility] Work Phone: Platelets bldon 04-12-2022 Platelets (Bld) [#/Vol] 189 10*3/uL 150-450 [facility] Work Phone: [phone] Serum or plasma albumin lisette urement (mass/volume)on 04-12-2022 Albumin [Mass/Vol] 3.5 g/dL 3.2-5.0 [facility] Work Phone: [phone] Serum or plasma albumin/glob ulin mass ratioon 04-12-2022 Albumin/Globulin [Mass ratio] 0.9 {ratio} 0.9-2.4 [facility] Work Phone: [phone] Serum or plasma calcium lisette urement (mass/volume)on 04-12-2022 Calcium [Mass/Vol] 8.9 mg/dL 8.5-10.1 [facility] Work Phone: Serum or plasma cholesterol in HDL measurement (mass/volume)on 04-12-2022 Cholesterol in HDL [Mass/Vol] 30 mg/dL >40 [facility] Work Phone: Comment on above: The drugs N-Acetylcy steine and Metamizole may falsely depress this assay. Reference Range HDL <40 mg/dL Low HDL Cholesterol HDL >or= 60 mg/dL High HDL Cholesterol Serum or plasma cholesterol in VLDL measurement (mass/volume)on 04-12-2022 Cholesterol in VLDL [Mass/Vol] 29 mg/dL 5-40 [facility] Work Phone: [phone] Serum or plasma creatinine m easurement (mass/volume)on 04-12-2022 Creatinine [Mass/Vol] 1.96 mg/dL 0.70-1.30 [facility] Work Phone: Comment on above: The validity of the calculated GFR & GFRAA in patients over 70 years has not been determined. Clinical correlation is essential. Serum or plasma low density lipoprotein (LDL) cholesterol measurement (mass/volume)on 04-12-2022 Cholesterol in LDL [Mass/Vol] 36 mg/dL 0-130 [facility] Work Phone: Serum or plasma urea nitroge n measurement (mass/volume)on 04-12-2022 Urea nitrogen [Mass/Vol] 42 mg/dL 7-18 [facility] Work Phone: [phone] Thin prep Papanicolaou smear with manual screeningon 04-12-2022 Thin prep Papanicolaou smear with manual screening 11 U/L 15-37 [facility] Work Phone: [phone] Thin prep Papanicolaou smear with manual screening 7 5-15 [facility] Work Phone: Thin prep Papanicolaou smear with manual screening 108.0 mg/L NO RANGE EST. [facility] Work Phone: Urine creatinine measurement (mass/volume)on 04-12-2022 Creatinine (U) [Mass/Vol] 146.00 mg/dL NO RANGE EST. [facility] Work Phone: Basophil percentageon 2021 Basophil percentage 3.3 mg/dL 2.5-4.9 [facility] Work Phone: [phone] Chloride [Moles/Vol] 103 mmol/L 98-107 [facility] Work Phone: Glucose [Mass/Vol] 160 mg/dL 74-106 [facility] Work Phone: Comment on above: Fasting Glucose resu lt greater than or equal to 126 mg/dL suggests DIABETES MELLITUS per A.D.A. criteria. Potassium [Moles/Vol] 4.2 mmol/L 3.5-5.1 [facility] Work Phone: Sodium [Moles/Vol] 136 mmol/L 136-145 [facility] Work Phone: WBC (Bld) [#/Vol] 5.9 10*3/uL 4.4-11.0 [facility] Work Phone: Blood erythrocytes count (nu mber/volume)on 10-27-2021 RBC (Bld) [#/Vol] 4.50 10*6/uL 4.6-6.2 [facility] Work Phone: Blood hemoglobin measurement (mass/volume)on 10-27-2021 Hemoglobin (Bld) [Mass/Vol] 13.1 g/dL 13.0-16.5 [facility] Work Phone: Blood platelet mean volumeon 10-27-2021 Platelet mean volume (Bld) [Entitic vol] 11.1 fL 6.2-12.0 [facility] Work Phone: [phone] Determination of erythrocyte mean corpuscular volume (MCV)on 10-27-2021 MCV (RBC) [Entitic vol] 88.9 fL 80-[address] [facility] Work Phone: [phone] Hematocrit Auto (Bld) [Volum e fraction]on 10-27-2021 Hematocrit (Bld) [Volume fraction] 40.0 % 40-54 [facility] Work Phone: [phone] Laboratory - Chemistry and C hemistry - challengeon 10-27-2021 CO2 [Moles/Vol] 26.0 mmol/L 21.0-32.0 [facility] Work Phone: Urea nitrogen/Creatinine [Mass ratio] 19.2 mg/mg 10-20 [facility] Work Phone: [phone] Laboratory - Hematology and Cell countson 10-27-2021 Erythrocyte distribution width (RBC) [Entitic vol] 39.8 fL 35.1-43.9 [facility] Work Phone: [phone] Erythrocyte distribution width (RBC) [Ratio] 12.3 % 11.6-14.6 [facility] Work Phone: MCH (RBC) [Entitic mass] 29.1 pg 27.0-32.0 [facility] Work Phone: [phone] MCHC Auto (RBC) [Mass/Vol]on 10-27-2021 MCHC (RBC) [Mass/Vol] 32.8 g/dL 32-36 [facility] Work Phone: No Panel Informationon 10-27 Estimated GFR (MDRD) Amer 49 mL/min >60 [facility] Work Phone: Comment on above: GFR Calc Estimated GFR (MDRD) Non-Af Amer 41 mL/min >60 [facility] Work Phone: [phone] Comment on above: Non- GFR Calc Parathyroid Hormone (Intact) 43.9 pg/mL 18.4-80.1 [facility] Work Phone: [phone] Vitamin D 25-Hydroxy 59.1 ng/mL [facility] Work Phone: [phone] Comment on above: Vitamin D 25(OH) Sta tus Range Deficiency <20 ng/mL (50nmol/L) Insufficiency 20 - 30 ng/mL (50 - 75 nmol/L) Sufficiency 30 - 100 ng/mL (75 - 250 nmol/L) Toxicity >100 ng/mL (>250 nmol/L) Platelets bldon 10-27-2021 Platelets (Bld) [#/Vol] 153 10*3/uL 150-450 [facility] Work Phone: Serum or plasma albumin lisette urement (mass/volume)on 10-27-2021 Albumin [Mass/Vol] 3.6 g/dL 3.2-5.0 [facility] Work Phone: Serum or plasma calcium lisette urement (mass/volume)on 10-27-2021 Calcium [Mass/Vol] 8.7 mg/dL 8.5-10.1 [facility] Work Phone: Serum or plasma creatinine m easurement (mass/volume)on 10-27-2021 Creatinine [Mass/Vol] 1.82 mg/dL 0.70-1.30 [facility] Work Phone: Comment on above: The validity of the calculated GFR & GFRAA in patients over 70 years has not been determined. Clinical correlation is essential. Serum or plasma urea nitroge n measurement (mass/volume)on 10-27-2021 Urea nitrogen [Mass/Vol] 35 mg/dL 7-18 [facility] Work Phone: Urine creatinine measurement (mass/volume)on 10-27-2021 Creatinine (U) [Mass/Vol] 61.30 mg/dL NO RANGE EST. [facility] Work Phone: Urine protein measurement (m ass/volume)on 10-27-2021 Protein (U) [Mass/Vol] 21.5 mg/dL 0.0-11.[address] [facility] Work Phone: Urine protein/creatinine mas s ratioon 10-27-2021 Protein/Creatinine (U) [Mass ratio] 351 mg/g CRE 0-200 [facility] Work Phone: Encounters Encounter Date Encounter Type Care Provider Facility Start: 12-25-2024 End: 12-25-[address] Kris Tong DO Work Phone: [facility] Start: 12-25-2024 End: 12-25-[address] Libra Draper MD -[facility] Work Phone: Start: 12-25-2024 End: 12-25-2024 ambulatory Kris Tong Facility:[facility] Start: 12-22-2024 End: 12-22-[address] Kris Tong DO Work Phone: -[facility] Start: 12-22-2024 End: 12-22-[address] Anand Andrea MD -[facility] Work Phone: Start: 11-05-2024 Encounter for genera l adult medical examination without abnormal findings [facility] Start: 09-22-2024 End: 09-22-2024 ambulatory Anand Zully Facility:[facility] Start: 09-22-2024 End: 09-22-[address] Anand Andrea MD -[facility] Work Phone: Start: 06-24-2024 End: 06-24-2024 ambulatory Blackstone Zully Facility:[facility] Start: 03-24-2024 End: 03-24-2024 ambulatory Anand Zully Facility:[facility] Start: 02-20-2024 End: 02-20-2024 ambulatory Blackstone Zully Facility:[facility] Start: 10-20-2022 End: 10-20-[address] Kris Tong Work Phone: [facility] Work Phone: Start: 10-20-2022 End: 10-20-[address] Kris Tong Work Phone: [facility] [place] Start: 10-10-2022 Non-patient / Non-visit Dr. Willem Tong Work Phone: [facility] Start: 10-10-2022 End: 10-10-[address] Kris Tong Work Phone: [facility] Work Phone: Start: 10-10-2022 End: 10-10-[address] Kris Tong Work Phone: [facility]-Pulmonary Services/Neurology Start: 09-26-2022 End: 09-26-[address] Kris Tong Work Phone: [facility] Start: 04-12-2022 End: 04-12-[address] Kris Tong Work Phone: [facility] Work Phone: Start: 04-12-2022 End: 04-12-[address] Kris Tong Work Phone: [facility] Start: 12-29-2021 End: 12-29-[address] Kris Tong Work Phone: [facility] Start: 12-20-2021 End: 12-20-[address] Kris Tong Work Phone: [facility] Start: 10-27-2021 End: 10-27-[address] Kris Tong Work Phone: [facility] Start: 09-22-2021 End: 09-22-[address] Kris Tong Work Phone: [facility] Start: 09-21-2021 Non-patient / Non-visit Dr. Willem Tong Work Phone: [facility] Procedures Date Procedure Procedure Detail Performing Clinician Start: 12-25-[address] Kris Tong DO Work Phone: Start: 12-25-2024 Serum inorganic phosphate measurement Dr. Kris Tong DO Work Phone: Start: 12-25-2024 Urine microalbumin/creatinine ratio measurement Dr. Kris Tong DO Work Phone: Start: 12-25-2024 Vitamin D, 25-hydrox y measurement Dr. Kris Tong DO Work Phone: Comment on above: Vitamin D StatusDefi ciency: <20 ng/mL (50nmol/L)Insufficiency: 20-30 ng/mL (50-75 nmol/L)Sufficiency: 30-100 ng/mL (75-250 nmol/L)Toxicity: >100 ng/mL (>250 nmol/L) Start: 04-06-2018 H/O: surgery History of loo p recorder Dr. Kris Tong Work Phone: Comment on above: RFA for [place] V -Tach, Loop inserted to monitor [place] ICM REVEAL LINQ - [id number] Plan of Treatment Date Care Activity Detail Author Start: 01-27-2025 ambulatory Ambulatory Facility:[facility] Payers Date Payer Category Payer Unknown [id number] 2024 Self-pay [id number] 2024 Unknown [id number] Private Health Insurance [id number] Unknown [id number] 2.16.8 [id number] Unknown [id number] 2.16.8 [id number] Unknown [id number] 2.16.8 [id number] Unknown [id number] 2.16.8 [id number] Unknown [id number] 2.16.8 [id number] Unknown [id number] 2.16.8 [id number] Unknown [id number] 2.16.8 [id number] Unknown [id number] 2.16.8 [id number] Unknown [id number] 2.16.8 [id number] Unknown [id number] 2.16.8 [id number] Social History Date Type Detail Facility Start: 12-08-2020 End: 05-05-2022 Tobacco smoking status NHIS Unknown if ever smoked [facility] Start: 1960 Sex Assigned At Male [facility] Start: 12-23-2022 Tobacco smoking stat us DCIS Never smoked tobacco (finding) [facility] Procedure note 10-10-2022 Note Date & Type Note Facility 10-10-[address] 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 Sustained ventricular tachycardia chronic History of loop recorder April 06, 2018 resolved [facility] Work Phone: Evaluation note 04-06-2018 Note Date & Type Note Facility 04-06-2018 Evaluation note Diagnosis Onset Date Paroxysmal supraventricular tachycardia chronic Sustained ventricular tachycardia chronic History of loop recorder April 06, 2018 resolved Paroxysmal supraventricular tachycardia chronic Sustained ventricular tachycardia chronic History of loop recorder April 06, 2018 resolved [facility] Work Phone: Evaluation note Note Date & Type Note Facility Evaluation note No assessment information availshahram caicedo [facility] Work Phone: Reason for referral (narrative) Note Date & Type Note Facility Reason for referral (narrative) No reason for referral information available [facility] Work Phone: Chief Complaint and Reason for [...] Second degree AV block, Mobitz type II Chief Complaint Admit Date Pacer Check Remote September 22, 2024 1:4 3am Pacer Check Remote December 22, 2024 1:10 am Summary Purpose Family History No Family History [...] Member Role Status Dates Dr. Kris Tong DO Family Provider Active Dr. Kris Tong DO Primary Care Provider Active Team Status: Inactive Member Role Status Dates Dr. Kris Tong DO Primary Care Provider Active Priscila Andrea MD Attending Provider, Referring Pro vider Active Team Status: Active Member Role Status Dates Dr. Kris Tong DO Primary Care Prov ider, Referring Provider, Other Provider Active Dr. Carrillo Saab , Attending Provider Active Team Status: Inactive Member Role Status Dates Dr. Kris Tong DO Primary Care Prov ider, Attending Provider, Referring Provider Active Team Status: Inactive Member Role Status Dates Dr. Kris Tong DO Primary Care Provider Active Dr. Libra Draper MD Attending Provider, Referri ng Provider Active Team Status: Active Member Role/Relationship Status Dates Dr. Kris Tong DO Family Provider Active Dr. Kris Tong DO Primary Care Provider Active Team Status: Inactive Member Role/Relationship Status Dates Dr. Kris Tong DO Primary Care Provider Active Start: September 22, 2024 End: September 22, 2024 Dr. Anand Andrea MD Attending Provider Active S tart: September 22, 2024 End: September 22, 2024 Dr. Anand Andrea MD Referring Provider Active S tart: September 22, 2024 End: September 22, 2024 Team Status: Inactive Member Role/Relationship Status Dates Dr. Kris Tong DO Primary Care Provider Active Start: December 22, 2024 End: December 22, 2024 Dr. Anand Andrea MD Attending Provider Active S tart: December 22, 2024 End: December 22, 2024 Team Status: Active Member Role/Relationship Status Dates Dr. Kris Tong DO Primary Care Provider Active Start: December 25, 2024 Dr. Libra Draper MD Attending Provider Active Start: December 25, 2024 Dr. Libra Draper MD Referring Provider Active Start: December 25, 2024 Team Status: Inactive Member Role/Relationship Status Dates Dr. Kris Tong DO Primary Care Provider Active Start: December 25, 2024 End: December 25, 2024 Dr. Libra Draper MD Attending Provider Active Start: December 25, 2024 End: December 25, 2024 Dr. Libra Draper MD Referring Provider Active Start: December 25, 2024 End: December 25, 2024 (unrecognized sect ion and content) No Status Records Found INFORMATION SOURCE (unrecogn ized section and content) DATE CREATED AUTHOR 01/19/2025 [facility] FOR RECORDS PERTAINING TO PATIENTS WHO ARE [...] BE BASED ON THE PRIMARY CLINICAL RECORDS. [facility] [employer] provides no warranty or guarantee of the accuracy or completeness of information in this document.
[2025-01-23 10:18] LABS: Hematocrit 42.5 % (40-54); Hemoglobin 13.8 g/dL (13.0-16.5); Immature Granulocytes Count 0.010 X10^3/uL (0.0-0.0); Mean Corp Hgb Conc 32.5 g/dL (32-36); Mean Corpuscular Volume 90.6 fL (80-94); Mean Platelet Vol. 11.5 fl (6.2-12.0); NRBC Flagged by Analyzer 0 % (0-5); Platelet Count 162 K/mm3 (150-450); RBC Distribution Width CV 12.9 % (11.6-14.6); RBC Distribution Width SD 42.1 fl (35.1-43.9); Red Blood Count 4.69 M/mm3 (4.6-6.2); White Blood Count 5.5 K/mm3 (4.4-11.0)
[2025-01-23 11:33] LABS: AST(SGOT) 14 U/L (<=37); Alanine Aminotransfer ALT/SGPT 17 U/L (<=46); Albumin, Serum 3.8 g/dL (3.4-4.8); Alkaline Phosphatase 98 U/L (40-129); Bilirubin, Direct 0.20 mg/dL (0.00-0.30); Cholesterol 82 mg/dL (<=200); Globulin 2.7 g/dL (2.2-4.2); Low Density Lipoprotein Calc. 32 mg/dL; PSA,Total - Annual Screen 0.88 ng/mL (0.02-4.00); Triglycerides 97 mg/dL; Very Low Density Lipoprotein 19 mg/dL (5-40); cholesterol:hdl ratio screen 2.69
== END | disposition home or self-care (01) ==
LOC: MTLAB 07:19
PROVIDERS: PCP Family Medicine; Referring Provider Family Medicine; Visit Provider Family Medicine
DX: Z00.00 Encounter for general adult medical examination without abnormal findings (principal); E11.21 Type 2 diabetes mellitus with diabetic nephropathy; Z12.5 Encounter for screening for malignant neoplasm of prostate
CPT/HCPCS: 36415; 80061; 80076; 83036; 84153; 84443; 85025; G0103